=== PATIENT | female | born 1960 | race Caucasian/White ===

== ENCOUNTER 2017-10-16 08:07 | Inpatient (IN) | payer MEDICAID ==
[~2017-10-16] VITALS: Ht 182.9 cm; Wt 108.6 kg
[2017-10-16] VITALS (13 sets, daily range): BP systolic 95–146; BP diastolic 47–99
[2017-10-16] MEDS ORDERED: fentaNYL INJECTION 100 MCG/2 ML AMP IVP PRN (08:45)
[2017-10-16] MEDS ORDERED: ONDANSETRON 4 MG/2 ML (SDV) Z0FRAN IVP PRN (08:45)
[2017-10-16] MEDS ORDERED: ALPRAZolam 0.25 MG (XANAX) TAB PO PRN (08:45)
[2017-10-16] MEDS ORDERED: IBUPROFEN TABLET 200 MG TAB PO PRN (08:45)
[2017-10-16] MEDS ORDERED: guaiFENesin/CODEINE (ROBITUSSIN AC) 10ML UDC PO PRN (08:45)
[2017-10-16] MEDS ORDERED: HYDROcodone/APAP 5 MG/325 MG (LORTAB) TAB PO PRN (08:45)
[2017-10-16] MEDS: cefTRIAXone INJECTION 1,000 MG in NS (IVPB) 50 ML IV SCH (10:02)
[2017-10-16] MEDS: AZITHROMYCIN INJECTION 250 MG in NS (IVPB) 250 ML IV SCH (10:02)
[2017-10-16] MEDS ORDERED: METO-333 PO (10:41)
[2017-10-16] MEDS ORDERED: WARF-47 PO (10:41)
[2017-10-16] MEDS ORDERED: FLUT1AER IH (10:41)
[2017-10-16] MEDS ORDERED: ALPR0.5T PO (10:41)
[2017-10-16] MEDS ORDERED: WARF4TAB70 PO (10:41)
[2017-10-16] MEDS ORDERED: ALBU2.5V4 NEB (10:42)
[2017-10-16] MEDS: RT-BUDESONIDE NEBS 0.5 MG/2ML (PULMICORT) AMP INH SCH ×2 (10:42→18:04)
[2017-10-16] MEDS: RT-ALBUTEROL/IPRATROPIUM 3 ML (DUONEB) VIAL INH SCH ×4 (10:42→22:18)
[2017-10-16] MEDS ORDERED: CATHETER FLUSH 10 ML SYR IV PRN (11:00)
[2017-10-16] MEDS: POLYETHYLENE GLYCOL 17 GM (MIRALAX) PACK PO SCH ×2 (11:05→20:58)
[2017-10-16 11:11] LABS: BASOPHILS % (AUTO) 0 % (0-10); EOSINOPHILS # (AUTO) 0.1 10^3/uL (0.0-0.3); EOSINOPHILS % (AUTO) 1 % (0-10); HEMATOCRIT 42 % (35-52); HEMOGLOBIN 14.4 G/DL (11.5-16.0); LYMPHOCYTES # (AUTO) 1.1 X 10^3 (1.0-4.0); LYMPHOCYTES % (AUTO) 17 % (12-44); MEAN CORPUSCULAR HEMOGLOBIN 28 PG (25-34); MEAN CORPUSCULAR HGB CONC 34 G/DL (32-36); MEAN CORPUSCULAR VOLUME 81 FL (80-99); MEAN PLATELET VOLUME 10.8 FL (7.4-10.4); MONOCYTES # (AUTO) 0.9 X 10^3 (0.0-1.0); MONOCYTES % (AUTO) 14 % (0-12); NEUTROPHILS # (AUTO) 4.6 X 10^3 (1.8-7.8); NEUTROPHILS % (AUTO) 68 % (42-75); PLATELET COUNT 277 10^3/uL (130-400); RED BLOOD COUNT 5.19 10^6/uL (4.35-5.85); RED CELL DISTRIBUTION WIDTH 16.6 % (10.0-14.5); WHITE BLOOD COUNT 6.8 10^3/uL (4.3-11.0)
[2017-10-16] MEDS: CATHETER FLUSH 10 ML SYR IV SCH ×2 (11:18→20:58)
[2017-10-16] MEDS: methylPREDNISolone 125 MG (Solu-MEDROL) VIAL IVP SCH ×2 (11:18→17:52)
[2017-10-16 11:36] LABS: ALANINE AMINOTRANSFERASE 12 U/L (0-55); ALBUMIN 3.3 GM/DL (3.2-4.5); ALKALINE PHOSPHATASE 86 U/L (40-136); BILIRUBIN,TOTAL 0.8 MG/DL (0.1-1.0); BUN/CREATININE RATIO 17; CALCIUM 8.6 MG/DL (8.5-10.1); CARBON DIOXIDE 29 MMOL/L (21-32); CHLORIDE 101 MMOL/L (98-107); CREATININE SERUM 0.84 MG/DL (0.60-1.30); GFR ESTIMATED > 60; GLUCOSE 80 MG/DL (70-105); POTASSIUM 4.2 MMOL/L (3.6-5.0); SODIUM 141 MMOL/L (135-145); TOTAL PROTEIN 6.7 GM/DL (6.4-8.2)
--- NOTE | 2017-10-16 12:11 | History & Physical-Hospitalist ---
HPI History of Present Illness: HPI/Chief Complaint CC: Dyspnea HPI: This is a 56-year-old white female clinic patient of Dr. Busby who was sent to [facility] ER after she was seen at Dr. Lucero's office at [facility] clinic. She adjusted become established with cardiology after several years of no follow-up with a history of cardiac valve repair and bypass surgery who presents to the [facility] MedSurg after she was found to have mycoplasma pneumonia and heart failure in the ER. She was found to have elevated BNP consistent with volume overload and mycoplasma and with infiltrates on chest x-ray. She continues to smoke although she has been trying to quit. She is maintained on Coumadin for anticoagulation for valve replacement and overall she is had major decline in the last couple weeks. Due to the fact that she needed pulmonary and cardiology follow-up she was transferred to higher level of care on my service at [facility] in [place]. Source: patient Exam Limitations: no limitations Date Seen 10/16/17 Time Seen by Provider: 11:30 Attending Physician Megan Snyder DO PCP Referring Physician Date of Admission Oct 16, 2017 at 10:05 Home Medications & Allergies Home Medications Reviewed patient Home Medication Reconciliation Form Allergies Allergies Coded Allergies No Known Drug Allergies (Unverified10/16/17) Past Ethgaku-Ovntkb-Aqszmo Hx Patient Social History Marrital Status: single Employed/Student: unemployed Alcohol Use: Denies Use Recreational Drug Use: No Smoking Status: Current Everyday Smoker Type Used: Cigarettes Physical Abuse Screen: No Sexual Abuse: No Recent Foreign Travel: No Contact w/other who traveled: No Recent Hopitalizations: No Recent Infectious Disease Expo: No Immunizations Up To Date Date of Pneumonia Vaccine: Oct 27, 2012 Seasonal Allergies Seasonal Allergies: Yes Surgeries Yes Cardiac (valve), CABG, Gallbladder, Hysterectomy, Orthopedic (et ankle), Tonsillectomy Respiratory Yes COPD, Pneumonia, Sleep Apnea Currently Using CPAP: Yes Cardiovascular Yes Cardiomyopathy, Chronic Edema/Swelling, Coronary Artery Disease, High Cholesterol, Hypertension, Valvular Heart Disease Neurological No Genitourinary Yes Bladder Infection Gastrointestinal No Musculoskeletal Yes Degenerate Disk Disease, Chronic Back Pain Endocrine History of Endocrine Disorders: No HEENT History of HEENT Disorders: No Cancer No Psychosocial History of Psychiatric Problem: Yes Behavioral Health Disorders: Anxiety Integumentary History of Skin or Integumenta: No Blood Transfusions History of Blood Disorders: No Review of Systems Constitutional: see HPI, dizziness, fever, malaise EENTM: no symptoms reported Respiratory: cough, dyspnea on exertion, short of breath, wheezing Cardiovascular: chest pain, palpitations Gastrointestinal: no symptoms reported Genitourinary: no symptoms reported Musculoskeletal: no symptoms reported Skin: no symptoms reported Psychiatric/Neurological: No Symptoms Reported All Other Systems Reviewed Negative Unless Noted: Yes Physical Exam Physical Exam Vital Signs Vital Sign - Last 12Hours 10/16/17 10/16/17 10/16/17 10:15 10:24 10:30 Temp 98.9 Pulse 105 Resp 33 B/P (MAP) 104/89 (94) Pulse Ox 93 O2 Delivery Nasal Cannula O2 Flow Rate 6.00 Capillary Refill : General Appearance: No Apparent Distress, WD/WN, Chronically ill, Obese Eyes: Bilateral Eye Normal Inspection, Bilateral Eye PERRL HEENT: PERRL/EOMI, Normal ENT Inspection, Pharynx Normal Neck: Full Range of Motion, Normal Inspection, Non Tender, Supple, Carotid Bruit Respiratory: Chest Non Tender, Lungs Clear, Normal Breath Sounds, No Accessory Muscle Use, No Respiratory Distress Cardiovascular: Regular Rate, Rhythm, No Edema, No Gallop, No JVD, No Murmur, Normal Peripheral Pulses, Other (click) Gastrointestinal: Normal Bowel Sounds, No Organomegaly, No Pulsatile Mass, Non Tender, Soft Back: Normal Inspection, No CVA Tenderness, No Vertebral Tenderness Extremity: Normal Capillary Refill, Normal Inspection, Normal Range of Motion, Non Tender, No Calf Tenderness, No Pedal Edema Neurologic/Psychiatric: Alert, Oriented x3, No Motor/Sensory Deficits, Depressed Affect Skin: Normal Color, Warm/Dry Lymphatic: No Adenopathy Results Results/Procedures Lab Laboratory Tests 10/16/17 11:03 Assessment/Plan Admission Diagnosis Assessment: Acute on chronic respiratory failure Mycoplasma pneumonia Congestive heart failure with elevated BNP echo ordered History of heart valve replacement maintain on Coumadin History of UTIs COPD Current smoker Assessment and Plan Plan: Echocardiogram Cardiology consultation with Dr. Lucero Pulmonology consultation with Dr. Holder Monitor labs IV steroids IV Lasix Check chest x-ray Rocephin and Zithromax Clinical Quality Measures DVT/VTE Risk/Contraindication: Risk Factor Score Per Nursin RFS Level Per Nursing on Admit: 4+=Very High MEGAN SNYDER DO Oct 16, 2017 12:11
[2017-10-16] MEDS ORDERED: RT-ALBUTEROL SULF 2.5 MG/3 ML PRE-MIX VIAL INH PRN (12:15)
[2017-10-16 12:25] LABS: ABG BASE EXCESS 6.3 MMOL/L (-2.5-2.5); ABG OXYGEN SATURATION 92 % (94-100); ABG PCO2 52 MMHG (35-45); ABG PO2 58 MMHG (79-93); ABG TCO2 32.8 MMOL/L (21.0-31.0)
[2017-10-16 12:27] LABS: ALLENS TEST YES-POS
[2017-10-16 12:28] LABS: INSPIRED O2 5L; PATIENT TEMP 97.8
[2017-10-16] MEDS ORDERED: INFLUENZA TRIvalent 2017-2018 0.5 ML/45 MCG SYR IM ONE (12:45)
--- NOTE | 2017-10-16 13:30 | Diagnostic Imaging Report ---
INDICATION: Respiratory failure. Dyspnea. No previous for comparison. FINDINGS: Portable chest shows marked cardiomegaly. Mild pulmonary venous congestion. There are bibasilar alveolar infiltrates. There is obscuration of the diaphragm bilaterally. Median sternotomy changes are present. IMPRESSION: 1. Cardiomegaly with findings consistent with congestive failure. 2. Rather dense bibasilar alveolar infiltrates. Could not exclude superimposed pneumonia, especially in the left lung base. Dictated by: Dictated on workstation # [id number]
[2017-10-16] MEDS: warFARin 2 MG (COUMADIN) TAB PO SCH (17:53)
--- NOTE | 2017-10-16 18:09 | Consultation-Cardiology ---
HPI-Cardiology Cardiology Consultation Date of Consultation 10/16/17 Date of Admission Time Seen by Provider: 14:00 Indication: short of breath HPI 57 years old lady with history of heart valve surgery was seen in my office yesterday and send directly to the ER in [place], she came to establish care, has been having increasing shortness of breath over the last week that has been worsening shortness of breath, wheezing and fatigue with edema, denied any chest pain or palpitation, patient was transferred to [place] for higher level of care, she is reporting some improvement overnight, her cyanosis is better, no fever or chills, diagnosed with pneumonia Home Medications & Allergies Allergies: Coded Allergies: No Known Drug Allergies (Unverified , 10/16/17) Home Medication List Reviewed: Yes THW-Zzkhoy-Hddvdv Hx Patient Social History Marital Status: single Employed/Student: unemployed Alcohol Use: Denies Use Recreational Drug Use: No Smoking Status: Current Everyday Smoker Type Used: Cigarettes Recent Foreign Travel: No Recent Infectious Disease Expo: No Recent Hopitalizations: No Physical Abuse Screen: No Sexual Abuse: No Immunizations Up To Date Date of Pneumonia Vaccine: Oct 27, 2012 Past Medical History discussed below Family Medical History Family Medical Hx non contributory to her current condition Constitutional: see HPI, dizziness, malaise, weakness, weight gain EENTM: see HPI, no symptoms reported Respiratory: see HPI, cough, dyspnea on exertion, orthopnea, phlegm, short of breath, wheezing Cardiovascular: see HPI, edema, vascular heart diseas Gastrointestinal: no symptoms reported, see HPI Genitourinary: no symptoms reported, see HPI Musculoskeletal: see HPI Skin: no symptoms reported, see HPI Psychiatric/Neurological: No Symptoms Reported, See HPI Reviewed Test Results Reviewed Test Results Lab Laboratory Tests Test 10/16/17 11:03 10/16/17 12:20 Range/Units White Blood Count 6.8 4.3-11.0 10^3/uL Red Blood Count 5.19 4.35-5.85 10^6/uL Hemoglobin 14.4 11.5-16.0 G/DL Hematocrit 42 35-52 % Mean Corpuscular Volume 81 80-99 FL Mean Corpuscular Hemoglobin 28 25-34 PG Mean Corpuscular Hemoglobin Concent 34 32-36 G/DL Red Cell Distribution Width 16.6 H 10.0-14.5 % Platelet Count 277 130-400 10^3/uL Mean Platelet Volume 10.8 H 7.4-10.4 FL Neutrophils (%) (Auto) 68 42-75 % Lymphocytes (%) (Auto) 17 12-44 % Monocytes (%) (Auto) 14 H 0-12 % Eosinophils (%) (Auto) 1 0-10 % Basophils (%) (Auto) 0 0-10 % Neutrophils # (Auto) 4.6 1.8-7.8 X 10^3 Lymphocytes # (Auto) 1.1 1.0-4.0 X 10^3 Monocytes # (Auto) 0.9 0.0-1.0 X 10^3 Eosinophils # (Auto) 0.1 0.0-0.3 10^3/uL Basophils # (Auto) 0.0 0.0-0.1 10^3/uL Sodium Level 141 135-145 MMOL/L Potassium Level 4.2 3.6-5.0 MMOL/L Chloride Level 101 98-107 MMOL/L Carbon Dioxide Level 29 21-32 MMOL/L Anion Gap 11 5-14 MMOL/L Blood Urea Nitrogen 14 7-18 MG/DL Creatinine 0.84 0.60-1.30 MG/DL Estimat Glomerular Filtration Rate > 60 BUN/Creatinine Ratio 17 Glucose Level 80 70-105 MG/DL Calcium Level 8.6 8.5-10.1 MG/DL Total Bilirubin 0.8 0.1-1.0 MG/DL Aspartate Amino Transf (AST/SGOT) 19 5-34 U/L Alanine Aminotransferase (ALT/SGPT) 12 0-55 U/L Alkaline Phosphatase 86 40-136 U/L B-Type Natriuretic Peptide 728.9 H <100.0 PG/ML Total Protein 6.7 6.4-8.2 GM/DL Albumin 3.3 3.2-4.5 GM/DL Blood Gas Puncture Site LT RAD Blood Gas Patient Temperature 97.8 Arterial Blood pH 7.40 7.37-7.43 Arterial Blood Partial Pressure CO2 52 H 35-45 MMHG Arterial Blood Partial Pressure O2 58 L 79-93 MMHG Arterial Blood HCO3 31 H 23-27 MMOL/L Arterial Blood Total CO2 32.8 H 21.0-31.0 MMOL/L Arterial Blood Oxygen Saturation 92 L 94-100 % Arterial Blood Base Excess 6.3 H -2.5-2.5 MMOL/L Angel Test YES-POS Blood Gas Ventilator Setting NA Blood Gas Inspired Oxygen 5L Physical Exam Vital Signs Vital Sign - Last 12Hours 10/16/17 10/16/17 10/16/17 10:15 10:24 10:30 Temp 98.9 Pulse 105 Resp 33 B/P (MAP) 104/89 (94) Pulse Ox 93 O2 Delivery Nasal Cannula O2 Flow Rate 6.00 Capillary Refill : General Appearance: WD/WN, Moderate Distress, Severe Distress Eyes: Bilateral Eye Normal Inspection, Bilateral Eye PERRL, Bilateral Eye EOMI HEENT: PERRL/EOMI, TMs Normal, Normal ENT Inspection, Pharynx Normal Neck: Full Range of Motion, Normal Inspection, Non Tender, Supple Respiratory: Chest Non Tender, Crackles, Decreased Breath Sounds, Expiration, Inspiration, Respiratory Distress Cardiovascular: No Gallop, Normal Peripheral Pulses, Systolic Murmur, Tachycardia Gastrointestinal: Normal Bowel Sounds, No Organomegaly, No Pulsatile Mass, Non Tender, Soft Back: Normal Inspection, No CVA Tenderness, No Vertebral Tenderness Extremity: Normal Capillary Refill, Normal Inspection, Normal Range of Motion, Non Tender, No Calf Tenderness, Pedal Edema Neurologic/Psychiatric: Alert, Oriented x3, No Motor/Sensory Deficits, Normal Mood/Affect Skin: Normal Color, Warm/Dry Lymphatic: No Adenopathy A/P-Cardiology Admission Diagnosis Acute respiratory failure Pneumonia Congestive heart failure Valvular heart disease Assessment/Plan Acute respiratory failure, acute exacerbation of COPD, admitted to ICU, continue with oxygen, steroids and antibiotics Pneumonia, atypical, on Rocephin and Zythromax. continue to monitor Cyanosis and hypoxemia, secondary to above, continue with supportive care Congestive heart failure, Acute on chronic left ventricular systolic dysfunction , secondary to valvular heart disease, restart diuretics and monitor tolerance History of valve replacement, reporting that she had valve replaced and another round repair for the mitral and aortic, not sure which one is which. Planning to obtain an echocardiogram and copy of her records. Hypertension, currently hypotensive. Monitor blood pressure Hyperlipidemia, monitor lipids Noncompliance with medication, monitor INR closely. BMI 33, we discussed weight loss, increased risk for diabetes. Clinical Quality Measures DVT/VTE Risk/Contraindication: Risk Factor Score Per Nursin RFS Level Per Nursing on Admit: 4+=Very High ALONZO AMADOR MD Oct 16, 2017 18:09
[2017-10-16] MEDS: NICOTINE 7 MG (NICODERM) PATCH TD SCH (18:11)
[2017-10-16] MEDS: ALPRAZolam 0.5 MG (XANAX) TAB PO SCH (20:58)
[2017-10-16] MEDS: meTOprolol TARTRATE 25 MG (LOPRESSOR) TABLET PO SCH (20:58)
[2017-10-17] VITALS (10 sets, daily range): BP systolic 108–155; BP diastolic 67–86
[2017-10-17] MEDS: methylPREDNISolone 125 MG (Solu-MEDROL) VIAL IVP SCH ×4 (00:36→17:56)
[2017-10-17] MEDS: RT-ALBUTEROL/IPRATROPIUM 3 ML (DUONEB) VIAL INH SCH ×6 (02:32→22:12)
[2017-10-17 06:03] LABS: HEMOGLOBIN 14.7 G/DL (11.5-16.0); MEAN PLATELET VOLUME 11.4 FL (7.4-10.4); RED BLOOD COUNT 5.35 10^6/uL (4.35-5.85); RED CELL DISTRIBUTION WIDTH 16.6 % (10.0-14.5); WHITE BLOOD COUNT 4.9 10^3/uL (4.3-11.0)
[2017-10-17] MEDS: CATHETER FLUSH 10 ML SYR IV SCH ×3 (06:05→22:44)
[2017-10-17 06:15] LABS: INR 2.8 (0.8-1.4)
[2017-10-17 06:37] LABS: ALANINE AMINOTRANSFERASE 11 U/L (0-55); ALBUMIN 3.3 GM/DL (3.2-4.5); ALKALINE PHOSPHATASE 89 U/L (40-136); BILIRUBIN,TOTAL 0.7 MG/DL (0.1-1.0); BUN/CREATININE RATIO 18; CARBON DIOXIDE 29 MMOL/L (21-32); CHLORIDE 100 MMOL/L (98-107); CREATININE SERUM 0.76 MG/DL (0.60-1.30); GFR ESTIMATED > 60; GLUCOSE 131 MG/DL (70-105); POTASSIUM 4.5 MMOL/L (3.6-5.0); SODIUM 139 MMOL/L (135-145); TOTAL PROTEIN 6.8 GM/DL (6.4-8.2)
[2017-10-17] MEDS: RT-BUDESONIDE NEBS 0.5 MG/2ML (PULMICORT) AMP INH SCH ×2 (06:39→19:10)
--- NOTE | 2017-10-17 07:33 | Progress Note-Hospitalist ---
Subjective HPI/CC On Admission Date Seen by Provider: Oct 17, 2017 Time Seen by Provider: 07:26 CC: Dyspnea HPI: This is a 56-year-old white female clinic patient of Dr. Busby who was sent to [facility] ER after she was seen at Dr. Lucero's office at [facility] clinic. She adjusted become established with cardiology after several years of no follow-up with a history of cardiac valve repair and bypass surgery who presents to the [facility] MedSurg after she was found to have mycoplasma pneumonia and heart failure in the ER. She was found to have elevated BNP consistent with volume overload and mycoplasma and with infiltrates on chest x-ray. She continues to smoke although she has been trying to quit. She is maintained on Coumadin for anticoagulation for valve replacement and overall she is had major decline in the last couple weeks. Due to the fact that she needed pulmonary and cardiology follow-up she was transferred to higher level of care on my service at [facility] in [place]. Subjective/Events-last exam Pt report doing well but feels tired. Has spent many nights awake coughing so states she is "sleep deprived." She complains of persistent cough still. She does had 2lpm of oxygen ordered for her at home but does not wears it. She does wear her CPAP "sometimes" though. Objective Exam Vital Signs Vital Sign - Last 12Hours 10/16/17 10/16/17 10/16/17 10:15 10:24 10:30 Temp 98.9 Pulse 105 Resp 33 B/P (MAP) 104/89 (94) Pulse Ox 93 O2 Delivery Nasal Cannula O2 Flow Rate 6.00 Capillary Refill : General Appearance: No Apparent Distress, WD/WN Respiratory: No Accessory Muscle Use, Decreased Breath Sounds, Wheezing Cardiovascular: Systolic Murmur, Tachycardia Gastrointestinal: Normal Bowel Sounds, Non Tender, Soft Extremity: Non Tender, No Calf Tenderness, No Pedal Edema Neurologic/Psychiatric: Alert, Oriented x3 Results/Procedures Lab Laboratory Tests 10/17/17 05:25 Assessment/Plan Assessment and Plan Assess & Plan/Chief Complaint CAP Diagnosis/Problems Diagnosis/Problems (1) Mycoplasmal pneumonia Status: Acute Assessment & Plan: +mycoplasma per OSH Continue on Rocephin and Azithro MAT protocol Steroids Pulm consulted, appreciate recs Qualifiers: Qualified Codes: J15.7 - Pneumonia due to Mycoplasma pneumoniae (2) CHF (congestive heart failure), NYHA class III Status: Acute Assessment & Plan: Cardiology consulted, appreciate recs Continue Metoprolol Was not placed on Lasix- will start Echo ordered Qualifiers: Qualified Codes: I50.9 - Heart failure, unspecified (3) Tobacco abuse Status: Chronic Assessment & Plan: Attempting cessation Nicotine patch (4) COPD (chronic obstructive pulmonary disease) Assessment & Plan: Continue Steroids MAT Protocol Pulm consulted Titrate oxygen to keep sats> 89 Wears 2lpm at home- has DME there per patient Qualifiers: Qualified Codes: J44.9 - Chronic obstructive pulmonary disease, unspecified (5) Aortic valve replaced Assessment & Plan: as seen on echo INR 2.8 Cards consulted ENRRIQUE RAWLS MD Oct 17, 2017 07:33
[2017-10-17] MEDS ORDERED: FUROSEMIDE 40 MG/4 ML INJ (LASIX) IVP NR (07:45)
[2017-10-17] MEDS ORDERED: RT-ADVAIR HFA 115/21 MCG PER PUFF IH SCH (08:00)
--- NOTE | 2017-10-17 08:18 | Diagnostic Imaging Report ---
INDICATION: Cough, congestion. TECHNIQUE: Single view chest 8:04 AM. CORRELATION STUDY: 10/16/2017 FINDINGS: Increasing infiltrate of the lung bases as well as left mid upper lung field. Findings are superimposed on changes of COPD. Poststernotomy changes. Cardiac valve surgery. Cardiac enlargement with mild vascular congestion. IMPRESSION: 1. Increasing infiltrate particularly lung bases. Cardiac enlargement with vasculature slightly prominent. Dictated by: Dictated on workstation # [id number]
[2017-10-17] MEDS: ACETAMINOPHEN 500 MG TAB (TYLENOL) PO PRN ×2 (09:20→20:52)
[2017-10-17] MEDS: meTOprolol TARTRATE 25 MG (LOPRESSOR) TABLET PO SCH ×2 (09:20→20:52)
[2017-10-17] MEDS: ALPRAZolam 0.5 MG (XANAX) TAB PO SCH ×2 (09:20→20:52)
[2017-10-17] MEDS: NICOTINE 7 MG (NICODERM) PATCH TD SCH (09:21)
[2017-10-17] MEDS: cefTRIAXone INJECTION 1,000 MG in NS (IVPB) 50 ML IV SCH (09:21)
[2017-10-17] MEDS: NICOTINE PATCH REMOVAL TP SCH (09:21)
[2017-10-17] MEDS: POLYETHYLENE GLYCOL 17 GM (MIRALAX) PACK PO SCH ×2 (09:22→20:52)
--- NOTE | 2017-10-17 09:34 | Pulmonary Consultation ---
History of Present Illness History of Present Illness Date of Consultation 10/17/17 09:29 Date of Admission Reason for Visit: short of breath Allergies and Home Medications Allergies Coded Allergies: No Known Drug Allergies (Unverified , 10/16/17) Home Medications Albuterol Sulfate 2.5 Mg/3 Ml Vial.neb, 2.5 MG NEB QID PRN for SHORTNESS OF BREATH, (Reported) Alprazolam 0.5 Mg Tablet, 0.5 MG PO BID, (Reported) Fluticasone/Vilanterol 1 Each Blst.w.dev, 1 PUFF IH DAILY, (Reported) Metoprolol Tartrate 25 Mg Tablet, 25 MG PO BID, (Reported) Warfarin Sodium 2 Mg Tablet, 2 MG PO Q48H, (Reported) Warfarin Sodium 4 Mg Tablet, 4 MG PO Q48H, (Reported) Past Pdwddot-Cxkewe-Hdhmqi Hx Patient Social History Alcohol Use: Denies Use Recreational Drug Use: No Smoking Status: Current Everyday Smoker Type Used: Cigarettes Recent Foreign Travel: No Contact w/Someone Who Travel: No Recent Infectious Disease Expo: No Recent Hopitalizations: No Immunizations Up To Date Date of Pneumonia Vaccine: Oct 27, 2012 Seasonal Allergies Seasonal Allergies: Yes Surgeries History of Surgeries: Yes Surgeries: Cardiac (valve), CABG, Gallbladder, Hysterectomy, Orthopedic (et ankle), Tonsillectomy Respiratory History of Respiratory Disorde: Yes Respiratory Disorders: Pneumonia, Sleep Apnea, COPD Currently Using CPAP: Yes Cardiovascular History of Cardiac Disorders: Yes Cardiac Disorders: Cardiomyopathy, Chronic Edema/Swelling, Coronary Artery Disease, High Cholesterol, Hypertension, Valvular Heart Disease Neurological History of Neurological Disord: No Genitourinary History of Genitourinary Disor: Yes Genitourinary Disorders: Bladder Infection Gastrointestinal History of Gastrointestinal Di: No Musculoskeletal History of Musculoskeletal Dis: Yes Musculoskeletal Disorders: Degenerate Disk Disease, Chronic Back Pain Endocrine History of Endocrine Disorders: No HEENT History of HEENT Disorders: No Cancer History of Cancer: No Psychosocial History of Psychiatric Problem: Yes Behavioral Health Disorders: Anxiety Integumentary History of Skin or Integumenta: No Blood Transfusions History of Blood Disorders: No Exam Exam Vital Signs Date Time Temp Pulse Resp B/P (MAP) Pulse Ox O2 Delivery O2 Flow Rate FiO2 10/17/17 08:00 97.0 109 21 131/85 (100) 91 Nasal Cannula 6.00 10/17/17 07:00 112 16/18 06:39 94 Nasal Cannula 7.00 10/17/17 04:00 97.4 104 22 125/83 (97) 88 Nasal Cannula 6.00 10/17/17 02:33 93 Nasal Cannula 7.00 10/17/17 01:00 111 10/17/17 00:47 96.8 10/17/17 00:00 107 37 155/67 (96) 89 Nasal Cannula 10/16/17 22:19 94 Nasal Cannula 7.00 10/16/17 21:00 90 NIV CPAP 6.00 10/16/17 20:00 98.0 10/16/17 20:00 116 23 117/72 (87) 91 Nasal Cannula 10/16/17 19:00 118 10/16/17 18:12 93 Nasal Cannula 7.00 10/16/17 18:00 112 18 112/87 (95) 98 Nasal Cannula 6.00 10/16/17 17:00 123 36 95/47 (63) 91 Nasal Cannula 6.00 10/16/17 16:00 113 23 126/88 (101) 95 Nasal Cannula 5.00 10/16/17 15:00 112 27 140/83 (102) 93 Nasal Cannula 5.00 10/16/17 14:40 Nasal Cannula 5.00 10/16/17 14:00 105 22 146/95 (112) 92 Nasal Cannula 5.00 10/16/17 13:01 103 10/16/17 13:00 109 12 146/97 (113) 93 Nasal Cannula 5.00 10/16/17 12:00 102 12 139/92 (108) 97 Nasal Cannula 5.00 10/16/17 12:00 97 Nasal Cannula 5.00 10/16/17 11:41 Nasal Cannula 6.00 10/16/17 11:30 105 17 140/78 (98) 94 Nasal Cannula 6.00 10/16/17 11:15 97 30 131/99 (110) 96 Nasal Cannula 6.00 10/16/17 11:00 105 11 124/76 (92) 92 Nasal Cannula 6.00 10/16/17 10:45 75 18 121/80 (94) 96 Nasal Cannula 6.00 10/16/17 10:45 Nasal Cannula 5.00 10/16/17 10:30 103 33 104/89 (94) 93 Nasal Cannula 6.00 10/16/17 10:24 105 10/16/17 10:15 98.9 I & O 10/17/17 07:00 Intake Total 625 ml Output Total 300 ml Balance 325 ml General Appearance: No Apparent Distress, WD/WN HEENT: PERRL/EOMI, TMs Normal, Normal ENT Inspection, Pharynx Normal Neck: Full Range of Motion, Normal Inspection, Non Tender, Supple Respiratory: No Accessory Muscle Use, Decreased Breath Sounds, Wheezing Cardiovascular: Systolic Murmur, Tachycardia Capillary Refill: Less Than 3 Seconds Extremity: Non Tender, No Calf Tenderness, No Pedal Edema Neurologic/Psychiatric: Alert, Oriented x3 Skin: Normal Color, Warm/Dry Lymphatic: No Adenopathy Results Lab Laboratory Tests 10/16/17 11:03 10/17/17 05:25 Assessment/Plan Assessment/Plan Mycoplasma PNA -Continue Rocephin and Azithromy;jong -SVNS CHF AE Lasix -Cardiology following Tobacco dependance -Education COPD AE -SOlumedrol Hx of aortic valve replacement. 255 Clinical Quality Measures DVT/VTE Risk/Contraindication: Risk Factor Score Per Nursin RFS Level Per Nursing on Admit: 4+=Very High THIEN KIRKPATRICK DO Oct 17, 2017 09:34
--- NOTE | 2017-10-17 09:56 | Cardiology Progress Note ---
Subjective Date Seen by Provider: Oct 17, 2017 Time Seen by Provider: 09:53 Subjective/Events-last exam patient is sitting up in a chair, feeling better, breathing better. Denied any chest pain. Still coughing and short of breath. Chest x-ray slightly worse Review of Systems General: No Chills, No Night Sweats, No Fatigue, No Malaise, No Appetite, No Other HEENT: No Head Aches, No Visual Changes, No Eye Pain, No Ear Pain, No Dysphasia , No Sinus Congestion, No Post Nasal Drip, No Sore Throat, No Other Pulmonary: Dyspnea, Cough, No Pleuritic Chest Pain, No Other Cardiovascular: Edema, No: Chest Pain, Palpitations, Orthopnea, Paroxysmal Noc. Dyspnea, Lt Headedness, Other Objective-Cardiology Exam Last Set of Vital Signs Vital Signs 10/17/17 08:00 Temp 97.0 Pulse 109 Resp 21 B/P (MAP) 131/85 (100) Pulse Ox 91 O2 Delivery Nasal Cannula O2 Flow Rate 6.00 Capillary Refill : Less Than 3 Seconds I&O Intake and Output 10/17/17 00:00 Intake Total 575 ml Output Total 100 ml Balance 475 ml Intake Oral 575 ml Output Urine Total 100 ml # Voids 3 # Bowel Movements 1 Daily Weight Change No General: Alert, Oriented X3, Cooperative HEENT: Atraumatic, PERRLA Neck: Supple, No JVD, No Thyromegaly Lungs: Normal Air Movement, Other (bilateral rhonchi) Heart: Normal S1, Normal S2, No Murmurs, Other (tachycardic) Abdomen: Normal Bowel Sounds, Soft, No Tenderness, No Hepatosplenomegaly, No Masses Extremities: No Clubbing, No Cyanosis, Normal Pulses, No Tenderness/Swelling, Other (mild edema) Skin: No Rashes, No Breakdown, No Significant Lesion Neuro: Normal Gait, Normal Speech, Strength at 5/5 X4 Ext, Normal Tone, Sensation Intact Psych/Mental Status: Mental Status NL, Mood NL Results Lab Laboratory Tests 10/16/17 11:03 10/17/17 05:25 A/P-Cardiology Admission Diagnosis Acute respiratory failure Pneumonia Congestive heart failure Valvular heart disease Assessment/Plan Acute respiratory failure, acute exacerbation of COPD, still having shortness of breath on oxygen. Continue with aggressive treatment. Continue to monitor Pneumonia, atypical, on Rocephin and Zithromax, chest x-ray is slightly worse today. Continue on antibiotic and monitor. Sinus tachycardia, due to shortness of breath and hypomagnesemia. Continue to monitor Cyanosis and hypoxemia, secondary to above, continue with supportive care, slightly better. Congestive heart failure, Acute on chronic left ventricular systolic dysfunction , secondary to valvular heart disease, History of aortic valve replacement, ejection fraction 40 percent. Continue to monitor at this time. History of aortic valve replacement, echocardiogram showed prosthetic valve is functioning normally, INR is 2.8. Continue to monitor daily INR. Mitral valve repair. Calcified valve. Hypertension, blood pressure is better at this time. Continue to monitor Hyperlipidemia, monitor lipids Noncompliance with medication, monitor INR closely. BMI 33, we discussed weight loss, increased risk for diabetes. Clinical Quality Measures DVT/VTE Risk/Contraindication: Risk Factor Score Per Nursin RFS Level Per Nursing on Admit: 4+=Very High ALONZO AMADOR MD Oct 17, 2017 09:56
[2017-10-17] MEDS: guaiFENesin (MUCINEX) 600 MG TAB PO PRN (10:09)
[2017-10-17] MEDS: ADVAIR HFA 115/21 MCG INHALER 8 GM IH SCH (10:13)
[2017-10-17] MEDS: AZITHROMYCIN INJECTION 250 MG in NS (IVPB) 250 ML IV SCH (10:21)
[2017-10-17] MEDS: LOSARTAN 25 MG (COZAAR) TAB PO SCH (13:05)
[2017-10-17] MEDS: warFARin 2 MG (COUMADIN) TAB PO SCH (18:06)
[2017-10-18] VITALS (9 sets, daily range): BP systolic 107–151; BP diastolic 63–98
[2017-10-18] MEDS: methylPREDNISolone 125 MG (Solu-MEDROL) VIAL IVP SCH ×4 (00:06→17:54)
[2017-10-18] MEDS: RT-ALBUTEROL/IPRATROPIUM 3 ML (DUONEB) VIAL INH SCH ×6 (02:41→21:26)
[2017-10-18] MEDS: ACETAMINOPHEN 500 MG TAB (TYLENOL) PO PRN ×3 (03:47→21:14)
[2017-10-18] MEDS: CATHETER FLUSH 10 ML SYR IV SCH ×3 (06:05→21:19)
[2017-10-18 06:10] LABS: BUN/CREATININE RATIO 27; CARBON DIOXIDE 27 MMOL/L (21-32); CHLORIDE 98 MMOL/L (98-107); CREATININE SERUM 0.81 MG/DL (0.60-1.30); GFR ESTIMATED > 60; GLUCOSE 121 MG/DL (70-105); POTASSIUM 4.9 MMOL/L (3.6-5.0); SODIUM 137 MMOL/L (135-145)
[2017-10-18 06:17] LABS: INR 3.6 (0.8-1.4); PROTHROMBIN TIME PATIENT 35.6 SEC (12.2-14.7)
[2017-10-18] MEDS: ADVAIR HFA 115/21 MCG INHALER 8 GM IH SCH (07:05)
[2017-10-18] MEDS: RT-BUDESONIDE NEBS 0.5 MG/2ML (PULMICORT) AMP INH SCH ×2 (07:05→21:26)
[2017-10-18] MEDS: POLYETHYLENE GLYCOL 17 GM (MIRALAX) PACK PO SCH ×2 (07:20→21:13)
--- NOTE | 2017-10-18 08:13 | Cardiology Progress Note ---
Subjective Date Seen by Provider: Oct 18, 2017 Time Seen by Provider: 08:09 Subjective/Events-last exam patient is sitting in a chair, feeling comfortable, breathing better but still having shortness of breath and cough. Denied any palpitation. Tachycardic. Review of Systems General: No Chills, No Night Sweats, No Fatigue, No Malaise, No Appetite, No Other HEENT: No Head Aches, No Visual Changes, No Eye Pain, No Ear Pain, No Dysphasia , No Sinus Congestion, No Post Nasal Drip, No Sore Throat, No Other Pulmonary: Dyspnea, Cough, No Pleuritic Chest Pain, No Other Cardiovascular: No: Chest Pain, Palpitations, Orthopnea, Paroxysmal Noc. Dyspnea, Edema, Lt Headedness, Other Objective-Cardiology Exam Last Set of Vital Signs Vital Signs 10/18/17 10/18/17 10/18/17 03:00 04:00 07:09 Temp 98.2 Pulse 110 Resp 22 B/P (MAP) 133/89 (104) Pulse Ox 96 O2 Delivery Nasal Cannula O2 Flow Rate 5.00 Capillary Refill : Less Than 3 Seconds I&O Intake and Output 10/18/17 00:00 Intake Total 1620 ml Output Total 1202 ml Balance 418 ml Intake Oral 1620 ml Output Urine Total 1202 ml # Voids 2 General: Alert, Oriented X3, Cooperative HEENT: Atraumatic, PERRLA Neck: Supple, No JVD, No Thyromegaly Lungs: Normal Air Movement, Other (bilateral rhonchi) Heart: Normal S1, Normal S2, No Murmurs, Other (tachycardic) Abdomen: Normal Bowel Sounds, Soft, No Tenderness, No Hepatosplenomegaly, No Masses Extremities: No Clubbing, No Cyanosis, Normal Pulses, No Tenderness/Swelling, Other (mild edema) Skin: No Rashes, No Breakdown, No Significant Lesion Neuro: Normal Gait, Normal Speech, Strength at 5/5 X4 Ext, Normal Tone, Sensation Intact Psych/Mental Status: Mental Status NL, Mood NL Results Lab Laboratory Tests 10/18/17 05:30 A/P-Cardiology Admission Diagnosis Acute respiratory failure Pneumonia Congestive heart failure Valvular heart disease Assessment/Plan Status post acute respiratory failure, acute exacerbation of COPD, improving slowly, still tachycardic due to hypoxemia. Sinus tachycardia secondary to hypoxemia. Continue to monitor at this time. No changes are recommended. Pneumonia, atypical, on Rocephin and Zithromax, feeling better today, planning to repeat chest x-ray tomorrow. Cyanosis and hypoxemia, secondary to above, continue with supportive care, slightly better. Congestive heart failure, Acute on chronic left ventricular systolic dysfunction , secondary to valvular heart disease, History of aortic valve replacement, ejection fraction 40 percent. Continue to monitor at this time. History of aortic valve replacement, echocardiogram showed prosthetic valve is functioning normally, INR is 3.6, hold Coumadin today and monitor INR. Hypertension, blood pressure is better at this time. Continue to monitor Hyperlipidemia, monitor lipids Noncompliance with medication, monitor INR closely. BMI 33, we discussed weight loss, increased risk for diabetes. Clinical Quality Measures DVT/VTE Risk/Contraindication: Risk Factor Score Per Nursin RFS Level Per Nursing on Admit: 4+=Very High ALONZO AMADOR MD Oct 18, 2017 08:12
[2017-10-18] MEDS: NICOTINE PATCH REMOVAL TP SCH (08:22)
[2017-10-18] MEDS: NICOTINE 7 MG (NICODERM) PATCH TD SCH (08:22)
[2017-10-18] MEDS: LOSARTAN 25 MG (COZAAR) TAB PO SCH (08:23)
[2017-10-18] MEDS: cefTRIAXone INJECTION 1,000 MG in NS (IVPB) 50 ML IV SCH (08:23)
[2017-10-18] MEDS: ALPRAZolam 0.5 MG (XANAX) TAB PO SCH ×2 (08:23→21:14)
[2017-10-18] MEDS: meTOprolol TARTRATE 25 MG (LOPRESSOR) TABLET PO SCH ×2 (08:53→21:14)
[2017-10-18] MEDS: AZITHROMYCIN INJECTION 250 MG in NS (IVPB) 250 ML IV SCH (08:53)
--- NOTE | 2017-10-18 08:59 | Progress Note-Hospitalist ---
Subjective HPI/CC On Admission Date Seen by Provider: Oct 18, 2017 Time Seen by Provider: 08:58 CC: Dyspnea HPI: This is a 56-year-old white female clinic patient of Dr. Busby who was sent to [facility] ER after she was seen at Dr. Lucero's office at [facility] clinic. She adjusted become established with cardiology after several years of no follow-up with a history of cardiac valve repair and bypass surgery who presents to the [facility] MedSurg after she was found to have mycoplasma pneumonia and heart failure in the ER. She was found to have elevated BNP consistent with volume overload and mycoplasma and with infiltrates on chest x-ray. She continues to smoke although she has been trying to quit. She is maintained on Coumadin for anticoagulation for valve replacement and overall she is had major decline in the last couple weeks. Due to the fact that she needed pulmonary and cardiology follow-up she was transferred to higher level of care on my service at [facility] in [place]. Subjective/Events-last exam She reports feeling well. She got sleep and is not coughing as much. No complaints. Eating well. No problems urinating or with BM. Objective Exam Vital Signs Vital Sign - Last 12Hours 10/16/17 10/16/17 10/16/17 10:15 10:24 10:30 Temp 98.9 Pulse 105 Resp 33 B/P (MAP) 104/89 (94) Pulse Ox 93 O2 Delivery Nasal Cannula O2 Flow Rate 6.00 Capillary Refill : Less Than 3 Seconds General Appearance: No Apparent Distress, WD/WN Respiratory: Lungs Clear, No Respiratory Distress Cardiovascular: Regular Rate, Rhythm, No Murmur Gastrointestinal: Normal Bowel Sounds, Non Tender, Soft Extremity: Non Tender, No Calf Tenderness Neurologic/Psychiatric: Alert, Oriented x3 Results/Procedures Lab Laboratory Tests 10/18/17 05:30 Assessment/Plan Assessment and Plan Assess & Plan/Chief Complaint CAP Diagnosis/Problems Diagnosis/Problems (1) Mycoplasmal pneumonia Status: Acute Assessment & Plan: +mycoplasma per OSH Continue on Rocephin and Azithro MAT protocol Steroids Pulm consulted, appreciate recs Qualifiers: Qualified Codes: J15.7 - Pneumonia due to Mycoplasma pneumoniae (2) CHF (congestive heart failure), NYHA class III Status: Acute Assessment & Plan: Cardiology consulted, appreciate recs Continue Metoprolol Echo ordered Qualifiers: Qualified Codes: I50.9 - Heart failure, unspecified (3) Tobacco abuse Status: Chronic Assessment & Plan: Attempting cessation Nicotine patch (4) COPD (chronic obstructive pulmonary disease) Assessment & Plan: Continue Steroids MAT Protocol Pulm consulted Titrate oxygen to keep sats> 89 Wears 2lpm at home- has DME there per patient I titrated patient down to 4lpm myself while in room Qualifiers: Qualified Codes: J44.9 - Chronic obstructive pulmonary disease, unspecified (5) Aortic valve replaced Assessment & Plan: as seen on echo INR 3.6, coumadin held currently Cards consulted ENRRIQUE RAWLS MD Oct 18, 2017 08:59
[2017-10-19] VITALS: BP 143/78
[2017-10-19] MEDS: methylPREDNISolone 125 MG (Solu-MEDROL) VIAL IVP SCH ×2 (00:16→05:41)
[2017-10-19] MEDS: RT-ALBUTEROL/IPRATROPIUM 3 ML (DUONEB) VIAL INH SCH ×6 (02:56→21:40)
[2017-10-19 04:00] VITALS: BP 141/89
[2017-10-19] MEDS: CATHETER FLUSH 10 ML SYR IV SCH ×3 (05:41→22:58)
[2017-10-19 06:44] LABS: HEMOGLOBIN 15.4 G/DL (11.5-16.0); RED BLOOD COUNT 5.61 10^6/uL (4.35-5.85); WHITE BLOOD COUNT 8.6 10^3/uL (4.3-11.0)
[2017-10-19 06:45] LABS: MEAN PLATELET VOLUME 10.2 FL (7.4-10.4); RED CELL DISTRIBUTION WIDTH 17.3 % (10.0-14.5)
[2017-10-19] MEDS: RT-BUDESONIDE NEBS 0.5 MG/2ML (PULMICORT) AMP INH SCH (06:47)
[2017-10-19] MEDS: ADVAIR HFA 115/21 MCG INHALER 8 GM IH SCH (06:47)
[2017-10-19 06:52] LABS: INR 2.6 (0.8-1.4); PROTHROMBIN TIME PATIENT 27.3 SEC (12.2-14.7)
[2017-10-19 07:15] LABS: ALANINE AMINOTRANSFERASE 25 U/L (0-55); ALBUMIN 3.4 GM/DL (3.2-4.5); ALKALINE PHOSPHATASE 78 U/L (40-136); BILIRUBIN,TOTAL 0.8 MG/DL (0.1-1.0); BUN/CREATININE RATIO 30; CALCIUM 9.2 MG/DL (8.5-10.1); CARBON DIOXIDE 21 MMOL/L (21-32); CHLORIDE 99 MMOL/L (98-107); CREATININE SERUM 0.82 MG/DL (0.60-1.30); GFR ESTIMATED > 60; GLUCOSE 107 MG/DL (70-105); POTASSIUM 5.7 MMOL/L (3.6-5.0); SODIUM 135 MMOL/L (135-145); TOTAL PROTEIN 7.3 GM/DL (6.4-8.2)
--- NOTE | 2017-10-19 07:53 | Cardiology Progress Note ---
Subjective Date Seen by Provider: Oct 19, 2017 Time Seen by Provider: 07:50 Subjective/Events-last exam patient is sitting in bed, feeling better, breathing better, still having some cough. Review of Systems General: No Chills, No Night Sweats, No Fatigue, No Malaise, No Appetite, No Other HEENT: No Head Aches, No Visual Changes, No Eye Pain, No Ear Pain, No Dysphasia , No Sinus Congestion, No Post Nasal Drip, No Sore Throat, No Other Pulmonary: Dyspnea, Cough, No Pleuritic Chest Pain, No Other Cardiovascular: No: Chest Pain, Palpitations, Orthopnea, Paroxysmal Noc. Dyspnea, Edema, Lt Headedness, Other Objective-Cardiology Exam Last Set of Vital Signs Vital Signs 10/19/17 10/19/17 10/19/17 04:00 06:45 06:50 Temp 96.0 Pulse 97 Resp 20 B/P (MAP) 141/89 (106) Pulse Ox 98 O2 Delivery Nasal Cannula O2 Flow Rate 4.00 Capillary Refill : Less Than 3 Seconds I&O Intake and Output 10/19/17 00:00 Intake Total 1620 ml Balance 1620 ml Intake Oral 1620 ml # Voids 4 # Bowel Movements 1 General: Alert, Oriented X3, Cooperative HEENT: Atraumatic, PERRLA Neck: Supple, No JVD, No Thyromegaly Lungs: Clear to Auscultation, Normal Air Movement Heart: Regular Rate, Normal S1, Normal S2, No Murmurs Abdomen: Normal Bowel Sounds, Soft, No Tenderness, No Hepatosplenomegaly, No Masses Extremities: No Clubbing, No Cyanosis, Normal Pulses, No Tenderness/Swelling Skin: No Rashes, No Breakdown, No Significant Lesion Neuro: Normal Gait, Normal Speech, Strength at 5/5 X4 Ext, Normal Tone, Sensation Intact Psych/Mental Status: Mental Status NL, Mood NL Results Lab Laboratory Tests 10/19/17 05:35 A/P-Cardiology Admission Diagnosis Acute respiratory failure Pneumonia Congestive heart failure Valvular heart disease Assessment/Plan Status post acute respiratory failure, acute exacerbation of COPD, better today. Continue on current medications and monitor. Sinus tachycardia secondary to hypoxemia, better today. Continue to monitor. Pneumonia, atypical, on Rocephin and Zithromax, feeling better today, continue on current treatment and monitor. Cyanosis and hypoxemia, secondary to above, continue with supportive care, slightly better. Congestive heart failure, Acute on chronic left ventricular systolic dysfunction , secondary to valvular heart disease, History of aortic valve replacement, ejection fraction 40 percent. Continue to monitor at this time. History of aortic valve replacement, echocardiogram showed prosthetic valve is functioning normally, INR is 2.6, restart Coumadin and monitor INR Hypertension, blood pressure is better at this time. Continue to monitor Hyperlipidemia, monitor lipids Noncompliance with medication, monitor INR closely. BMI 33, we discussed weight loss, increased risk for diabetes. Clinical Quality Measures DVT/VTE Risk/Contraindication: Risk Factor Score Per Nursin RFS Level Per Nursing on Admit: 4+=Very High ALONZO AMADOR MD Oct 19, 2017 07:53
[2017-10-19 08:00] VITALS: BP 132/79
[2017-10-19] MEDS: ACETAMINOPHEN 500 MG TAB (TYLENOL) PO PRN (08:30)
[2017-10-19] MEDS: ALPRAZolam 0.5 MG (XANAX) TAB PO SCH ×2 (08:30→21:36)
[2017-10-19] MEDS: meTOprolol TARTRATE 25 MG (LOPRESSOR) TABLET PO SCH ×2 (08:30→21:36)
[2017-10-19] MEDS: cefTRIAXone INJECTION 1,000 MG in NS (IVPB) 50 ML IV SCH (08:31)
[2017-10-19] MEDS: NICOTINE PATCH REMOVAL TP SCH (08:31)
[2017-10-19] MEDS: NICOTINE 7 MG (NICODERM) PATCH TD SCH (08:31)
[2017-10-19] MEDS: LOSARTAN 25 MG (COZAAR) TAB PO SCH (08:31)
[2017-10-19] MEDS: guaiFENesin (MUCINEX) 600 MG TAB PO PRN (08:40)
[2017-10-19] MEDS: POLYETHYLENE GLYCOL 17 GM (MIRALAX) PACK PO SCH ×2 (08:43→21:36)
[2017-10-19] MEDS: AZITHROMYCIN INJECTION 250 MG in NS (IVPB) 250 ML IV SCH (09:19)
--- NOTE | 2017-10-19 11:34 | Pulmonary Progress Note ---
Subjective Time Seen by Provider: 11:40 Subjective/Events-last exam Pt appears to be doing better. Exam Exam Vital Signs Date Time Temp Pulse Resp B/P (MAP) Pulse Ox O2 Delivery O2 Flow Rate FiO2 10/19/17 10:30 92 Nasal Cannula 4.00 10/19/17 09:00 Nasal Cannula 4.00 10/19/17 08:00 98.4 89 20 132/79 (96) 93 Nasal Cannula 4.00 10/19/17 06:50 98 10/19/17 06:45 94 Nasal Cannula 4.00 10/19/17 04:00 96.0 97 20 141/89 (106) 98 Nasal Cannula 4.00 10/19/17 03:00 93 NIV CPAP 4.00 10/19/17 00:00 97.0 101 20 143/78 (99) 89 Nasal Cannula 4.00 10/18/17 21:32 99 Nasal Cannula 4.00 10/18/17 21:26 94 Nasal Cannula 4.00 10/18/17 21:00 93 Nasal Cannula 5.00 10/18/17 20:09 97.0 106 22 131/98 (109) 93 Nasal Cannula 4.00 10/18/17 17:14 98.6 94 20 146/91 (109) 94 Nasal Cannula 4.00 10/18/17 15:16 94 Nasal Cannula 5.00 10/18/17 12:00 97.0 103 20 123/81 (95) 93 Nasal Cannula 4.00 10/18/17 11:34 93 Nasal Cannula 5.00 I & O 10/19/17 07:00 Intake Total 1520 ml Output Total 950 ml Balance 570 ml General Appearance: No Apparent Distress, WD/WN HEENT: PERRL/EOMI, TMs Normal, Normal ENT Inspection, Pharynx Normal Neck: Full Range of Motion, Normal Inspection, Non Tender, Supple Respiratory: Lungs Clear, No Respiratory Distress Cardiovascular: Regular Rate, Rhythm, No Murmur Capillary Refill: Less Than 3 Seconds Extremity: Non Tender, No Calf Tenderness Neurologic/Psychiatric: Alert, Oriented x3 Skin: Normal Color, Warm/Dry Lymphatic: No Adenopathy Results Lab Laboratory Tests 10/18/17 05:30 10/19/17 05:35 Assessment/Plan Assessment/Plan Mycoplasma PNA -Continue Rocephin and Azithromycin -SVNS CHF AE with pulmonary edema Lasix give 60mg x 1 -Cardiology following Tobacco dependance -Education COPD AE -SOlumedrol -- change to prednisone taper -oxygen -SVNs Hx of aortic valve replacement. Clinical Quality Measures DVT/VTE Risk/Contraindication: Risk Factor Score Per Nursin RFS Level Per Nursing on Admit: 4+=Very High THIEN KIRKPATRICK DO Oct 19, 2017 11:34
[2017-10-19] MEDS ORDERED: FUROSEMIDE 40 MG/4 ML INJ (LASIX) IVP NR (11:45)
[2017-10-19 12:00] VITALS: BP 120/68
--- NOTE | 2017-10-19 14:13 | Progress Note-Hospitalist ---
Subjective HPI/CC On Admission Date Seen by Provider: Oct 19, 2017 Time Seen by Provider: 13:30 CC: Dyspnea HPI: This is a 56-year-old white female clinic patient of Dr. Busby who was sent to [facility] ER after she was seen at Dr. Lucero's office at [facility] clinic. She adjusted become established with cardiology after several years of no follow-up with a history of cardiac valve repair and bypass surgery who presents to the [facility] MedSurg after she was found to have mycoplasma pneumonia and heart failure in the ER. She was found to have elevated BNP consistent with volume overload and mycoplasma and with infiltrates on chest x-ray. She continues to smoke although she has been trying to quit. She is maintained on Coumadin for anticoagulation for valve replacement and overall she is had major decline in the last couple weeks. Due to the fact that she needed pulmonary and cardiology follow-up she was transferred to higher level of care on my service at [facility] in [place]. Subjective/Events-last exam Pt reports feeling great today. Has been up and ambulating without problems. Does not think Mucinex is helping, feels it's getting her more congested. Objective Exam Vital Signs Vital Sign - Last 12Hours 10/16/17 10/16/17 10/16/17 10:15 10:24 10:30 Temp 98.9 Pulse 105 Resp 33 B/P (MAP) 104/89 (94) Pulse Ox 93 O2 Delivery Nasal Cannula O2 Flow Rate 6.00 Capillary Refill : Less Than 3 Seconds General Appearance: No Apparent Distress, WD/WN Respiratory: Lungs Clear, No Respiratory Distress Cardiovascular: Regular Rate, Rhythm, No JVD Gastrointestinal: Normal Bowel Sounds, Non Tender, Soft Extremity: Non Tender, No Calf Tenderness Neurologic/Psychiatric: Alert, Oriented x3, Normal Mood/Affect Results/Procedures Lab Laboratory Tests 10/19/17 05:35 Assessment/Plan Assessment and Plan Assess & Plan/Chief Complaint CAP Diagnosis/Problems Diagnosis/Problems (1) Mycoplasmal pneumonia Status: Acute Assessment & Plan: +mycoplasma per OSH Continue on Rocephin and Azithro MAT protocol Steroids Pulm consulted, appreciate recs Qualifiers: Qualified Codes: J15.7 - Pneumonia due to Mycoplasma pneumoniae (2) CHF (congestive heart failure), NYHA class III Status: Acute Assessment & Plan: Cardiology consulted, appreciate recs Continue Metoprolol Echo shows EF 40-45% Lasix given this AM Qualifiers: Qualified Codes: I50.9 - Heart failure, unspecified (3) COPD (chronic obstructive pulmonary disease) Assessment & Plan: Continue Steroids MAT Protocol Pulm consulted Titrate oxygen to keep sats> 89 Wears 2lpm at home- has DME there per patient Qualifiers: Qualified Codes: J44.9 - Chronic obstructive pulmonary disease, unspecified (4) Tobacco abuse Status: Chronic Assessment & Plan: Attempting cessation Nicotine patch (5) Aortic valve replaced Assessment & Plan: as seen on echo INR 2.6, coumadin resumed Cards consulted ENRRIQUE RAWLS MD Oct 19, 2017 14:13
--- NOTE | 2017-10-19 15:39 | Occ Therapy Progress Note ---
Therapy Progress Note 1525 to 1530 Pt reported that she has been taking herself to the bathroom, able to get socks off and on, doing grooming in bathroom, able to feed herself. Her arm strength is WFL for her needs, per her report ("I've never been really strong.".) She manages her energy conservation needs and is comfortable doing ADLs with oxygen tubing. No skilled needs identified, with patient agreement. PASQUALE OT. visit ERIBERTO CHOW OT Oct 19, 2017 15:39
--- NOTE | 2017-10-19 15:53 | Physical Therapy Evaluation ---
PT Evaluation-General Medical Diagnosis Admission Date Oct 16, 2017 at 10:05 Medical Diagnosis: mycoplasm pneumonia Onset Date: Oct 16, 2017 Therapy Diagnosis Therapy Diagnosis: weakness; abn gait Height/Weight Height (Feet): 6 Height (Inches): 0.00 Weight (Pounds): 259 Weight (Ounces): 1.0 Precautions Precautions/Isolations: Droplet Isolation Weight Bear Status Right Lower Extremity: Right Weight Bearing/Tolerated Left Lower Extremity: Left Weight Bearing/Tolerated Referral Physician: Elizabeth Reason for Referral: Evaluation/Treatment Medical History Pertinent Medical History: CABG (valve replacement), COPD, HTN Additional Medical History DDD; current everyday smoker Current History Pt admitted with SOA, respiratory failure and found to have above diagnosis Reviewed History: Yes Social History Home: Single Level Current Living Status: Alone Entry Into Home: Stairs With Railing Prior/Core FIM Prior Level of Function Functional [place] Measure 0=Not Assessed/NA 4=Minimal Assistance 1=Total Assistance 5=Supervision or Setup 2=Maximal Assistance 6=Modified [place] 3=Moderate Assistance 7=Complete [place] Indep at PLOF; 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 PT Evaluation-Current Subjective Agreeable to PT. Wants to walk in the jeter to "stretch my legs and back." Pain Numeric Pain Scale: 0-No Pain Location: No Pain Reported Objective Patient Orientation: Person, Place, Time, Situation Problem Solving: Good Attachments: Oxygen (in situ during and post treatment) ROM/Strength Strength Upper Extremities WFL Strength Lower Extremities WFL Integumentary/Posture Integumentary refer to nursing notes. Bowel Incontinence: No Posture normal and symmetrical Neuromuscular (Tone, Coordination, Reflexes) no noted functional deficits Sensory Vision: Functional Hearing: Functional Hand Dominance: Right Sensation Right Lower Extremit: Intact Sensation Left Lower Extremity: Intact Transfers Functional [place] Measure 0=Not Assessed/NA 4=Minimal Assistance 1=Total Assistance 5=Supervision or Setup 2=Maximal Assistance 6=Modified [place] 3=Moderate Assistance 7=Complete [place] Transfers (B, C, W/C) (FIM): 5 Gait Mode of Locomotion: Walk Anticipated Mode of Locomotion: Walk Gait (FIM): 5 Distance (FIM): 3=150 ft Distance: 220 ft Gait Level of Assist: 5 Gait Assistive Device: None Comments/Gait Description Safe and steady gait; 2-3 standing rest breaks. Balance Sitting Static: Good Sitting Dynamic: Good Standing Static: Good Standing Dynamic: Good Assessment/Needs Pt presents with acute hospital stay due to above diagnosis. She did well with gait and is safe. Will beneift from a reassessment tomorrow and plan to dc if she is still at a high mobility level Rehab Potential: Good PT Senior Living Goals Senior Living Goals PT Senior Living Goals Time Frame: Oct 21, 2017 Transfers (B,C,W/C) (FIM): 7 Gait (FIM): 7 PT Plan Problem List Problem List: Activity Tolerance, Functional Strength, Safety Treatment/Plan Treatment Plan: Continue Plan of Care Treatment Plan: Functional Activity Walker, Gait, Safety Treatment Duration: Oct 21, 2017 Frequency: 6 times per week Estimated Hrs Per Day: .25 hour per day Patient and/or Family Agrees t: Yes Safety Risks/Education Patient Education: Safety Issues Teaching Recipient: Patient Teaching Methods: Demonstration, Discussion Response to Teaching: Return Demonstration Time/GCodes Time In: 1500 Time Out: 1525 Total Billed Treatment Time: 25 Total Billed Treatment visit eVM 25 GIANLUCA NAVA PT Oct 19, 2017 15:53
[2017-10-19 16:00] VITALS: BP 169/88
[2017-10-19] MEDS: warFARin 2 MG (COUMADIN) TAB PO SCH (17:20)
[2017-10-19 20:00] VITALS: BP 145/92
[2017-10-20 00:14] VITALS: BP 137/69
[2017-10-20 00:25] VITALS: BP 125/86
[2017-10-20] MEDS: RT-ALBUTEROL/IPRATROPIUM 3 ML (DUONEB) VIAL INH SCH ×5 (02:15→18:32)
[2017-10-20 04:00] VITALS: BP 140/71
[2017-10-20] MEDS: CATHETER FLUSH 10 ML SYR IV SCH ×3 (06:25→22:26)
--- NOTE | 2017-10-20 06:53 | Pulmonary Progress Note ---
Subjective Time Seen by Provider: 06:58 Subjective/Events-last exam Pt still requiring oxygen and complains of SOB. SHe is coughing up yellow sputum now. Exam Exam Vital Signs Date Time Temp Pulse Resp B/P (MAP) Pulse Ox O2 Delivery O2 Flow Rate FiO2 10/20/17 04:00 96.2 90 18 140/71 (94) 90 NIV CPAP 10/20/17 02:15 93 NIV CPAP 4.00 10/20/17 00:25 96.1 101 18 125/86 (99) 93 NIV CPAP 10/19/17 21:40 92 Nasal Cannula 4.00 10/19/17 21:00 Nasal Cannula 4.00 10/19/17 20:00 97.8 100 22 145/92 (109) 91 Nasal Cannula 4.00 10/19/17 18:41 94 Nasal Cannula 4.00 10/19/17 16:00 98.6 89 20 169/88 (115) 92 Nasal Cannula 4.00 10/19/17 12:00 97.7 97 20 120/68 (85) 93 Nasal Cannula 4.00 10/19/17 10:30 92 Nasal Cannula 4.00 10/19/17 09:00 Nasal Cannula 4.00 10/19/17 08:00 98.4 89 20 132/79 (96) 93 Nasal Cannula 4.00 10/19/17 06:50 98 I & O 10/20/17 07:00 Intake Total 2240 ml Output Total 5205 ml Balance -2965 ml General Appearance: No Apparent Distress, WD/WN HEENT: PERRL/EOMI, TMs Normal, Normal ENT Inspection, Pharynx Normal Neck: Full Range of Motion, Normal Inspection, Non Tender, Supple Respiratory: No Accessory Muscle Use, No Respiratory Distress, Wheezing Cardiovascular: Regular Rate, Rhythm, No JVD Capillary Refill: Less Than 3 Seconds Extremity: Non Tender, No Calf Tenderness Neurologic/Psychiatric: Alert, Oriented x3, Normal Mood/Affect Skin: Normal Color, Warm/Dry Lymphatic: No Adenopathy Results Lab Laboratory Tests 10/19/17 05:35 Assessment/Plan Assessment/Plan Mycoplasma PNA - Rocephin and Azithromycin -SVNS CHF AE with pulmonary edema repeat Lasix 40mg x 1 -Cardiology following -Repeat CXR Tobacco dependance -Education COPD AE - prednisone taper -oxygen -- pt does not have home oxygen she will probably need it at discharge -SVNs TODD -Pt uses her CPAP machine at night. Hx of aortic valve replacement. Repeat labs and CXR pending. 233 Clinical Quality Measures DVT/VTE Risk/Contraindication: Risk Factor Score Per Nursin RFS Level Per Nursing on Admit: 4+=Very High THIEN KIRKPATRICK DO Oct 20, 2017 06:53
[2017-10-20] MEDS ORDERED: FUROSEMIDE 40 MG/4 ML INJ (LASIX) IVP NR (07:00)
[2017-10-20] MEDS ORDERED: KCL 20 MEQ TAB (K-DUR) PO ONE (07:00)
[2017-10-20 07:09] LABS: BASOPHILS % (AUTO) 0 % (0-10); EOSINOPHILS % (AUTO) 0 % (0-10); HEMATOCRIT 49 % (35-52); HEMOGLOBIN 15.9 G/DL (11.5-16.0); LYMPHOCYTES # (AUTO) 1.6 X 10^3 (1.0-4.0); LYMPHOCYTES % (AUTO) 16 % (12-44); MEAN CORPUSCULAR HEMOGLOBIN 28 PG (25-34); MEAN CORPUSCULAR HGB CONC 32 G/DL (32-36); MEAN CORPUSCULAR VOLUME 87 FL (80-99); MEAN PLATELET VOLUME 11.8 FL (7.4-10.4); MONOCYTES # (AUTO) 1.4 X 10^3 (0.0-1.0); MONOCYTES % (AUTO) 14 % (0-12); NEUTROPHILS # (AUTO) 7.1 X 10^3 (1.8-7.8); NEUTROPHILS % (AUTO) 70 % (42-75); PLATELET COUNT 283 10^3/uL (130-400); RED BLOOD COUNT 5.63 10^6/uL (4.35-5.85); RED CELL DISTRIBUTION WIDTH 18.1 % (10.0-14.5); WHITE BLOOD COUNT 10.2 10^3/uL (4.3-11.0)
[2017-10-20 07:23] LABS: BUN/CREATININE RATIO 29; CARBON DIOXIDE 30 MMOL/L (21-32); CHLORIDE 95 MMOL/L (98-107); CREATININE SERUM 0.86 MG/DL (0.60-1.30); GFR ESTIMATED > 60; GLUCOSE 72 MG/DL (70-105); MAGNESIUM 1.8 MG/DL (1.8-2.4); PHOSPHORUS 3.1 MG/DL (2.3-4.7); POTASSIUM 4.7 MMOL/L (3.6-5.0); SODIUM 137 MMOL/L (135-145)
[2017-10-20 07:24] LABS: INR 2.2 (0.8-1.4); PROTHROMBIN TIME PATIENT 24.7 SEC (12.2-14.7)
[2017-10-20 08:00] VITALS: BP 101/64
--- NOTE | 2017-10-20 08:00 | Diagnostic Imaging Report ---
INDICATION: Shortness of breath. COMPARISON: 10/17/2017. FINDINGS: Unchanged marked enlargement of the cardiac silhouette. Central vascular indistinctness along with heterogeneous interstitial and airspace opacities are unchanged. No pneumothorax. Decreased pulmonary vascular markings in the lung apices are most compatible with emphysema. No appreciable pleural effusion. IMPRESSION: Unchanged cardiomegaly with interstitial and airspace opacities in the lung bases which may be due to pulmonary edema. Underlying interstitial lung disease cannot be excluded. Dictated by: Dictated on workstation # [id number]
--- NOTE | 2017-10-20 08:08 | Cardiology Progress Note ---
Subjective Date Seen by Provider: Oct 20, 2017 Time Seen by Provider: 08:06 Subjective/Events-last exam patient is sitting in bed, still having some shortness of breath and congestion , mild cough, no chest pain Review of Systems General: No Chills, No Night Sweats, No Fatigue, No Malaise, No Appetite, No Other HEENT: No Head Aches, No Visual Changes, No Eye Pain, No Ear Pain, No Dysphasia , No Sinus Congestion, No Post Nasal Drip, No Sore Throat, No Other Pulmonary: Dyspnea, Cough, No Pleuritic Chest Pain, No Other Cardiovascular: No: Chest Pain, Palpitations, Orthopnea, Paroxysmal Noc. Dyspnea, Edema, Lt Headedness, Other Objective-Cardiology Exam Last Set of Vital Signs Vital Signs 10/20/17 10/20/17 04:00 07:15 Temp 96.2 Pulse 90 Resp 18 B/P (MAP) 140/71 (94) Pulse Ox 90 O2 Delivery Nasal Cannula O2 Flow Rate 4.00 Capillary Refill : Less Than 3 Seconds I&O Intake and Output 10/20/17 00:00 Intake Total 2240 ml Output Total 6155 ml Balance -3915 ml Intake Oral 2240 ml Output Urine Total 6155 ml # Bowel Movements 4 General: Alert, Oriented X3, Cooperative HEENT: Atraumatic, PERRLA Neck: Supple, No JVD, No Thyromegaly Lungs: Clear to Auscultation, Normal Air Movement Heart: Regular Rate, Normal S1, Normal S2, No Murmurs Abdomen: Normal Bowel Sounds, Soft, No Tenderness, No Hepatosplenomegaly, No Masses Extremities: No Clubbing, No Cyanosis, Normal Pulses, No Tenderness/Swelling Skin: No Rashes, No Breakdown, No Significant Lesion Neuro: Normal Gait, Normal Speech, Strength at 5/5 X4 Ext, Normal Tone, Sensation Intact Psych/Mental Status: Mental Status NL, Mood NL Results Lab Laboratory Tests 10/20/17 06:14 A/P-Cardiology Admission Diagnosis Acute respiratory failure Pneumonia Congestive heart failure Valvular heart disease Assessment/Plan Status post acute respiratory failure, acute exacerbation of COPD, better today. Continue on current medications and monitor. Sinus tachycardia secondary to hypoxemia, better today. Continue to monitor. Pneumonia, atypical, on Rocephin and Zithromax, feeling better today, continue on current treatment and monitor. Cyanosis and hypoxemia, secondary to above, continue with supportive care, slightly better. Congestive heart failure, Acute on chronic left ventricular systolic dysfunction , secondary to valvular heart disease, History of aortic valve replacement, ejection fraction 40 percent. planning to evaluate Lexiscan stress test History of aortic valve replacement, echocardiogram showed prosthetic valve is functioning normally, INR is 2.2, restart Coumadin and monitor INR Hypertension, blood pressure is better at this time. Continue to monitor Hyperlipidemia, monitor lipids Noncompliance with medication, monitor INR closely. BMI 33, we discussed weight loss, increased risk for diabetes. Clinical Quality Measures DVT/VTE Risk/Contraindication: Risk Factor Score Per Nursin RFS Level Per Nursing on Admit: 4+=Very High ALONZO AMADOR MD Oct 20, 2017 08:07
[2017-10-20] MEDS: cefTRIAXone INJECTION 1,000 MG in NS (IVPB) 50 ML IV SCH (09:14)
[2017-10-20] MEDS: NICOTINE 7 MG (NICODERM) PATCH TD SCH (09:16)
[2017-10-20] MEDS: NICOTINE PATCH REMOVAL TP SCH (09:16)
[2017-10-20] MEDS: predniSONE 10 MG TAB PO SCH (09:17)
[2017-10-20] MEDS: ALPRAZolam 0.5 MG (XANAX) TAB PO SCH ×2 (09:17→21:34)
[2017-10-20] MEDS: meTOprolol TARTRATE 25 MG (LOPRESSOR) TABLET PO SCH ×2 (09:17→21:34)
[2017-10-20] MEDS: LOSARTAN 25 MG (COZAAR) TAB PO SCH (09:17)
[2017-10-20] MEDS: AZITHROMYCIN 250 MG TAB (ZITHROMAX) PO SCH (09:17)
[2017-10-20] MEDS: POLYETHYLENE GLYCOL 17 GM (MIRALAX) PACK PO SCH ×2 (09:18→21:34)
--- NOTE | 2017-10-20 10:55 | Physical Therapy Daily Note ---
PT Daily Note-Current Subjective Patient agrees to PT. She has been up in her room independently without O2. SAO2 on 3L is 85%. Increased to 4L. Pain Numeric Pain Scale: 0-No Pain Location: No Pain Reported Mental Status Patient Orientation: Normal For Age Transfers Functional [place] Measure 0=Not Assessed/NA 4=Minimal Assistance 1=Total Assistance 5=Supervision or Setup 2=Maximal Assistance 6=Modified [place] 3=Moderate Assistance 7=Complete IndependenceIRFPAI Quality Coding Scale 6 Independent with activity with or without an assistive device 5 Patient requires set up or clean up by helper. Patient completes activity by themselves 4 Supervision or touching assist (CGA). Barney provide cues , steadying assist 3 The helper provides less than half the effort to complete the activity 2 The helper provides more than half the effort to complete the activity 1 Dependent. The helper does all the effort to complete an activity 7 Patient refused to complete or attempt activity 9 The patient did not perform the activity before the current illness or injury 88 Not attempted due to Medical conditions or safety concerns Transfers (B, C, W/C) (FIM): 7 Scootin Sit to/from Stand: 7 Weight Bearing Right Lower Extremity: Right Weight Bearing/Tolerated Left Lower Extremity: Left Weight Bearing/Tolerated Gait Training Gait (FIM): 7 Distance (FIM): 3=150 ft Distance: >800' Gait Level of Assist: 7 Gait Assistive Device: None safe and functional Assessment Patient is currently at independent PLOF with all gross motor skills. O2 tank left in room to allow patient to ambulate PRN in hallway with mask on. RT for home O2 evaluation during PT treatment. PT to dismiss patient from services due to PLOF. PT Chemist Goals Shelter Goals PT Shelter Goals Time Frame: Oct 21, 2017 Transfers (B,C,W/C) (FIM): 7 Gait (FIM): 7 PT Plan Treatment/Plan Treatment Plan: Discontinue PT, goals met Treatment Plan: Functional Activity Walker, Gait, Safety Treatment Duration: Oct 21, 2017 Frequency: 6 times per week Estimated Hrs Per Day: .25 hour per day Patient and/or Family Agrees t: Yes Time/GCodes Time In: 1018 Time Out: 1037 Total Billed Treatment Time: 19 Total Billed Treatment 1 visit FA 19 min MIGUEL SANTIAGO PT Oct 20, 2017 10:55
[2017-10-20] MEDS: ADVAIR HFA 115/21 MCG INHALER 8 GM IH SCH (11:49)
[2017-10-20 12:58] VITALS: BP 126/74
--- NOTE | 2017-10-20 13:35 | Progress Note-Hospitalist ---
Subjective HPI/CC On Admission Date Seen by Provider: Oct 20, 2017 Time Seen by Provider: 13:00 CC: Dyspnea HPI: This is a 56-year-old white female clinic patient of Dr. Busby who was sent to [facility] ER after she was seen at Dr. Lucero's office at [facility] clinic. She adjusted become established with cardiology after several years of no follow-up with a history of cardiac valve repair and bypass surgery who presents to the [facility] MedSurg after she was found to have mycoplasma pneumonia and heart failure in the ER. She was found to have elevated BNP consistent with volume overload and mycoplasma and with infiltrates on chest x-ray. She continues to smoke although she has been trying to quit. She is maintained on Coumadin for anticoagulation for valve replacement and overall she is had major decline in the last couple weeks. Due to the fact that she needed pulmonary and cardiology follow-up she was transferred to higher level of care on my service at [facility] in [place]. Subjective/Events-last exam Pt reports feeling better. Has been up and walking around. Is unsure what capacity her machine at home has for concentrating oxygen. Objective Exam Vital Signs Vital Sign - Last 12Hours 10/16/17 10/16/17 10/16/17 10:15 10:24 10:30 Temp 98.9 Pulse 105 Resp 33 B/P (MAP) 104/89 (94) Pulse Ox 93 O2 Delivery Nasal Cannula O2 Flow Rate 6.00 Capillary Refill : Less Than 3 Seconds General Appearance: No Apparent Distress, WD/WN Respiratory: Lungs Clear, No Respiratory Distress Cardiovascular: Regular Rate, Rhythm, Systolic Murmur Neurologic/Psychiatric: Alert, Oriented x3, Normal Mood/Affect Results/Procedures Lab Laboratory Tests 10/20/17 06:14 Assessment/Plan Assessment and Plan Assess & Plan/Chief Complaint CAP Diagnosis/Problems Diagnosis/Problems (1) Mycoplasmal pneumonia Status: Acute Assessment & Plan: +mycoplasma per OSH Continue on Rocephin and Azithro MAT protocol Prednisone taper Pulm consulted, appreciate recs Qualifiers: Qualified Codes: J15.7 - Pneumonia due to Mycoplasma pneumoniae (2) CHF (congestive heart failure), NYHA class III Status: Acute Assessment & Plan: Cardiology consulted, appreciate recs Continue Metoprolol, Losartan Echo shows EF 40-45% Planning stress test in AM Qualifiers: Qualified Codes: I50.9 - Heart failure, unspecified (3) COPD (chronic obstructive pulmonary disease) Assessment & Plan: Continue Steroids, Advair, Albuterol prn MAT Protocol Pulm consulted Titrate oxygen to keep sats> 89 Wears 2lpm at home- has DME there per patient but unsure of capacity if higher levels are needed Qualifiers: Qualified Codes: J44.9 - Chronic obstructive pulmonary disease, unspecified (4) Tobacco abuse Status: Chronic Assessment & Plan: Attempting cessation Nicotine patch (5) Aortic valve replaced Assessment & Plan: as seen on echo INR 2.2, continue coumadin Cards consulted ENRRIQUE RAWLS MD Oct 20, 2017 13:35
[2017-10-20 16:00] VITALS: BP 131/72
[2017-10-20] MEDS: warFARin 2 MG (COUMADIN) TAB PO SCH (19:06)
[2017-10-21] VITALS: BP 146/95
[2017-10-21] MEDS: RT-ALBUTEROL/IPRATROPIUM 3 ML (DUONEB) VIAL INH SCH ×7 (00:22→22:06)
[2017-10-21 01:18] VITALS: BP 146/95
[2017-10-21] MEDS: CATHETER FLUSH 10 ML SYR IV SCH ×3 (05:19→21:00)
[2017-10-21 06:16] LABS: BASOPHILS % (AUTO) 0 % (0-10); EOSINOPHILS # (AUTO) 0.1 10^3/uL (0.0-0.3); EOSINOPHILS % (AUTO) 1 % (0-10); HEMATOCRIT 49 % (35-52); HEMOGLOBIN 15.6 G/DL (11.5-16.0); LYMPHOCYTES # (AUTO) 1.8 X 10^3 (1.0-4.0); LYMPHOCYTES % (AUTO) 21 % (12-44); MEAN CORPUSCULAR HEMOGLOBIN 28 PG (25-34); MEAN CORPUSCULAR HGB CONC 32 G/DL (32-36); MEAN CORPUSCULAR VOLUME 87 FL (80-99); MEAN PLATELET VOLUME 11.7 FL (7.4-10.4); MONOCYTES # (AUTO) 0.9 X 10^3 (0.0-1.0); MONOCYTES % (AUTO) 11 % (0-12); NEUTROPHILS # (AUTO) 5.8 X 10^3 (1.8-7.8); NEUTROPHILS % (AUTO) 68 % (42-75); PLATELET COUNT 279 10^3/uL (130-400); RED BLOOD COUNT 5.58 10^6/uL (4.35-5.85); RED CELL DISTRIBUTION WIDTH 17.3 % (10.0-14.5); WHITE BLOOD COUNT 8.5 10^3/uL (4.3-11.0)
[2017-10-21 06:28] LABS: PROTHROMBIN TIME PATIENT 22.2 SEC (12.2-14.7)
[2017-10-21 06:37] LABS: BUN/CREATININE RATIO 29; CALCIUM 8.9 MG/DL (8.5-10.1); CARBON DIOXIDE 33 MMOL/L (21-32); CHLORIDE 95 MMOL/L (98-107); CREATININE SERUM 0.83 MG/DL (0.60-1.30); GFR ESTIMATED > 60; GLUCOSE 76 MG/DL (70-105); MAGNESIUM 1.9 MG/DL (1.8-2.4); PHOSPHORUS 2.9 MG/DL (2.3-4.7); POTASSIUM 4.9 MMOL/L (3.6-5.0); SODIUM 139 MMOL/L (135-145)
[2017-10-21] MEDS: ADVAIR HFA 115/21 MCG INHALER 8 GM IH SCH (06:37)
[2017-10-21] MEDS ORDERED: FUROSEMIDE 40 MG/4 ML INJ (LASIX) IVP NR (07:44)
[2017-10-21 08:20] VITALS: BP 123/78
[2017-10-21] MEDS: NICOTINE PATCH REMOVAL TP SCH (08:38)
[2017-10-21] MEDS: NICOTINE 7 MG (NICODERM) PATCH TD SCH (08:38)
--- NOTE | 2017-10-21 08:50 | Pulmonary Progress Note ---
Subjective Time Seen by Provider: 08:49 Subjective/Events-last exam no complications noted. Pt is doing better. Exam Exam Vital Signs Date Time Temp Pulse Resp B/P (MAP) Pulse Ox O2 Delivery O2 Flow Rate FiO2 10/21/17 08:20 97.5 102 18 123/78 (93) 94 Nasal Cannula 2.50 10/21/17 06:40 93 Nasal Cannula 4.00 10/21/17 06:37 93 Nasal Cannula 4.00 10/21/17 02:34 90 Nasal Cannula 4.00 10/21/17 01:18 98.6 93 22 146/95 (112) 93 NIV CPAP 4.00 10/20/17 21:00 Nasal Cannula 4.00 10/20/17 18:32 90 Nasal Cannula 4.00 10/20/17 16:00 97.0 106 22 131/72 (91) 95 Nasal Cannula 4.00 10/20/17 13:58 92 Nasal Cannula 4.00 10/20/17 12:58 98.3 109 20 126/74 (91) 91 Nasal Cannula 4.00 10/20/17 11:50 93 Nasal Cannula 4.00 10/20/17 11:49 93 Nasal Cannula 4.00 10/20/17 10:36 92 5.00 10/20/17 09:00 Nasal Cannula 4.00 I & O 10/21/17 07:00 Intake Total 1600 ml Output Total 2200 ml Balance -600 ml General Appearance: No Apparent Distress, WD/WN HEENT: PERRL/EOMI, TMs Normal, Normal ENT Inspection, Pharynx Normal Neck: Full Range of Motion, Normal Inspection, Non Tender, Supple Respiratory: Lungs Clear, No Respiratory Distress Cardiovascular: Regular Rate, Rhythm, Systolic Murmur Capillary Refill: Less Than 3 Seconds Extremity: Non Tender, No Calf Tenderness Neurologic/Psychiatric: Alert, Oriented x3, Normal Mood/Affect Skin: Normal Color, Warm/Dry Lymphatic: No Adenopathy Results Lab Laboratory Tests 10/20/17 06:14 10/21/17 05:51 Assessment/Plan Assessment/Plan Mycoplasma PNA - Rocephin and Azithromycin -- D/C after 5days of treatemtn -SVNS CHF AE with pulmonary edema repeat Lasix 40mg x 1 -Cardiology following -Repeat CXR Tobacco dependance -Education COPD AE - prednisone taper -oxygen -- pt does not have home oxygen she will probably need it at discharge -SVNs TODD -Pt uses her CPAP machine at night. Hx of aortic valve replacement. 232 Clinical Quality Measures DVT/VTE Risk/Contraindication: Risk Factor Score Per Nursin RFS Level Per Nursing on Admit: 4+=Very High THIEN KIRKPATRICK DO Oct 21, 2017 08:49
--- NOTE | 2017-10-21 11:13 | Cardiology Progress Note ---
Subjective Date Seen by Provider: Oct 21, 2017 Time Seen by Provider: 11:11 Subjective/Events-last exam patient is in bed, still having some cough, denied any chest pain. Review of Systems General: No Chills, No Night Sweats, No Fatigue, No Malaise, No Appetite, No Other HEENT: No Head Aches, No Visual Changes, No Eye Pain, No Ear Pain, No Dysphasia , No Sinus Congestion, No Post Nasal Drip, No Sore Throat, No Other Pulmonary: Dyspnea, Cough, No Pleuritic Chest Pain, No Other Cardiovascular: No: Chest Pain, Palpitations, Orthopnea, Paroxysmal Noc. Dyspnea, Edema, Lt Headedness, Other Objective-Cardiology Exam Last Set of Vital Signs Vital Signs 10/21/17 10/21/17 08:20 10:45 Temp 97.5 Pulse 102 Resp 18 B/P (MAP) 123/78 (93) Pulse Ox 81 O2 Delivery Nasal Cannula O2 Flow Rate 4.00 Capillary Refill : Less Than 3 Seconds I&O Intake and Output 10/21/17 00:00 Intake Total 1550 ml Output Total 1300 ml Balance 250 ml Intake Oral 1550 ml Output Urine Total 1300 ml # Voids 6 # Bowel Movements 1 General: Alert, Oriented X3, Cooperative HEENT: Atraumatic, PERRLA Neck: Supple, No JVD, No Thyromegaly Lungs: Clear to Auscultation, Normal Air Movement Heart: Regular Rate, Normal S1, Normal S2, No Murmurs Abdomen: Normal Bowel Sounds, Soft, No Tenderness, No Hepatosplenomegaly, No Masses Extremities: No Clubbing, No Cyanosis, Normal Pulses, No Tenderness/Swelling Skin: No Rashes, No Breakdown, No Significant Lesion Neuro: Normal Gait, Normal Speech, Strength at 5/5 X4 Ext, Normal Tone, Sensation Intact Psych/Mental Status: Mental Status NL, Mood NL Results Lab Laboratory Tests 10/21/17 05:51 A/P-Cardiology Admission Diagnosis Acute respiratory failure Pneumonia Congestive heart failure Valvular heart disease Assessment/Plan Status post acute respiratory failure, acute exacerbation of COPD, improving, feeling better, continue on current treatment and monitor. Pneumonia, atypical, on Rocephin and Zithromax, feeling better today, continue on current treatment and monitor. Cyanosis and hypoxemia, secondary to above, continue with supportive care, slightly better. Congestive heart failure, Acute on chronic left ventricular systolic dysfunction , secondary to valvular heart disease, History of aortic valve replacement, ejection fraction 40 percent. planning to evaluate Lexiscan stress test History of aortic valve replacement, echocardiogram showed prosthetic valve is functioning normally, INR is 2.0, continue Coumadin and monitor INR Hypertension, blood pressure is better at this time. Continue to monitor Hyperlipidemia, monitor lipids Noncompliance with medication, monitor INR closely. BMI 33, we discussed weight loss, increased risk for diabetes. Clinical Quality Measures DVT/VTE Risk/Contraindication: Risk Factor Score Per Nursin RFS Level Per Nursing on Admit: 4+=Very High ALONZO AMADOR MD Oct 21, 2017 11:13
[2017-10-21] MEDS ORDERED: REGADENOSON 0.4 MG/5 ML SYR (LEXISCAN) IV ONE ×2 (13:05→14:45)
--- NOTE | 2017-10-21 13:09 | Progress Note (SOAP) ---
Subjective HPI/CC On Admission Date Seen by Provider: Oct 21, 2017 Time Seen by Provider: 10:30 CC: Dyspnea HPI: This is a 56-year-old white female clinic patient of Dr. Busby who was sent to [facility] ER after she was seen at Dr. Lucero's office at [facility] clinic. She adjusted become established with cardiology after several years of no follow-up with a history of cardiac valve repair and bypass surgery who presents to the [facility] MedSurg after she was found to have mycoplasma pneumonia and heart failure in the ER. She was found to have elevated BNP consistent with volume overload and mycoplasma and with infiltrates on chest x-ray. She continues to smoke although she has been trying to quit. She is maintained on Coumadin for anticoagulation for valve replacement and overall she is had major decline in the last couple weeks. Due to the fact that she needed pulmonary and cardiology follow-up she was transferred to higher level of care on my service at [facility] in [place]. Subjective/Events-last exam No acute events overnight. Patient awake and lying in bed comfortably this morning. Patient reports occasional nose bleeds from continuous oxygen administration. She continues to have a good appetite and is eating well. Patient is having normal bowel movements, and denies any difficulty urinating. Breathing continues to improve. Denies fever, chills, sweats, chest pain, shortness of breath, abdominal pain, n/v/d/c. Review of Systems HEENT: Other (epistaxis) Objective Exam Vital Signs Vital Sign - Last 12Hours 10/16/17 10/16/17 10/16/17 10:15 10:24 10:30 Temp 98.9 Pulse 105 Resp 33 B/P (MAP) 104/89 (94) Pulse Ox 93 O2 Delivery Nasal Cannula O2 Flow Rate 6.00 Capillary Refill : Less Than 3 Seconds General Appearance: Obese Eyes: Bilateral Eye Normal Inspection Neck: Full Range of Motion, Normal Inspection, Supple Respiratory: Lungs Clear, Normal Breath Sounds, No Accessory Muscle Use, No Respiratory Distress Cardiovascular: Regular Rate, Rhythm, No Edema, Normal Peripheral Pulses Gastrointestinal: Normal Bowel Sounds, Non Tender, Soft Extremity: Normal Inspection Neurologic/Psychiatric: Alert, No Motor/Sensory Deficits Skin: Normal Color, Warm/Dry Results/Procedures Lab Laboratory Tests 10/21/17 05:51 Assessment/Plan Assessment and Plan Assess & Plan/Chief Complaint Community Acquired Pneumonia Diagnosis/Problems Diagnosis/Problems (1) Mycoplasmal pneumonia Status: Acute Assessment & Plan: Continue ceftriaxone and azithromycin, D/C 10/22/17 Pulmonary following, appreciate recs Qualifiers: Qualified Codes: J15.7 - Pneumonia due to Mycoplasma pneumoniae (2) CHF (congestive heart failure), NYHA class III Status: Acute Assessment & Plan: Continue metoprolol and losartan Lasix 40mg x1 Lexiscan stress test today Repeat CXR Cardiology following, appreciate recs Qualifiers: Qualified Codes: I50.9 - Heart failure, unspecified (3) COPD (chronic obstructive pulmonary disease) Status: Chronic Assessment & Plan: Continue prednisone taper Continue fluticasone/salmeterol and duonebs Continue O2 NC with goal spO2 >89 Patient will likely require home oxygen upon discharge Qualifiers: Qualified Codes: J44.9 - Chronic obstructive pulmonary disease, unspecified (4) Tobacco abuse Status: Chronic Assessment & Plan: Continue nicoderm patch Smoking cessation education (5) Heart valve replaced Assessment & Plan: Continue warfarin INR: 2.0, monitor Echo: valve functioning appropriately TALI MOON MED STUDENT Oct 21, 2017 13:09
[2017-10-21 14:31] VITALS: BP 127/95
[2017-10-21] MEDS: meTOprolol TARTRATE 25 MG (LOPRESSOR) TABLET PO SCH ×2 (15:43→21:32)
[2017-10-21] MEDS: ALPRAZolam 0.5 MG (XANAX) TAB PO SCH ×2 (15:44→21:33)
[2017-10-21] MEDS: POLYETHYLENE GLYCOL 17 GM (MIRALAX) PACK PO SCH ×2 (15:44→21:33)
[2017-10-21] MEDS: LOSARTAN 25 MG (COZAAR) TAB PO SCH (16:10)
[2017-10-21] MEDS: AZITHROMYCIN 250 MG TAB (ZITHROMAX) PO SCH (16:10)
[2017-10-21] MEDS: predniSONE 10 MG TAB PO SCH (16:10)
--- NOTE | 2017-10-21 16:33 | Progress Note-Hospitalist ---
Subjective HPI/CC On Admission Date Seen by Provider: Oct 21, 2017 Time Seen by Provider: 14:50 CC: Dyspnea HPI: This is a 56-year-old white female clinic patient of Dr. Busby who was sent to [facility] ER after she was seen at Dr. Lucero's office at [facility] clinic. She adjusted become established with cardiology after several years of no follow-up with a history of cardiac valve repair and bypass surgery who presents to the [facility] MedSurg after she was found to have mycoplasma pneumonia and heart failure in the ER. She was found to have elevated BNP consistent with volume overload and mycoplasma and with infiltrates on chest x-ray. She continues to smoke although she has been trying to quit. She is maintained on Coumadin for anticoagulation for valve replacement and overall she is had major decline in the last couple weeks. Due to the fact that she needed pulmonary and cardiology follow-up she was transferred to higher level of care on my service at [facility] in [place]. Subjective/Events-last exam Pt reports feeling well. She reports "cheating" with her oxygen earlier. She took her NC off because it was bothering her and he sats dropped significantly. Objective Exam Vital Signs Vital Sign - Last 12Hours 10/16/17 10/16/17 10/16/17 10:15 10:24 10:30 Temp 98.9 Pulse 105 Resp 33 B/P (MAP) 104/89 (94) Pulse Ox 93 O2 Delivery Nasal Cannula O2 Flow Rate 6.00 Capillary Refill : Less Than 3 SecondsLess Than 3 Seconds General Appearance: No Apparent Distress, WD/WN Respiratory: No Accessory Muscle Use, No Respiratory Distress, Decreased Breath Sounds (in bases) Cardiovascular: Regular Rate, Rhythm, No Murmur Gastrointestinal: Normal Bowel Sounds, Non Tender, Soft Results/Procedures Lab Laboratory Tests 10/21/17 05:51 Assessment/Plan Assessment and Plan Assess & Plan/Chief Complaint CAP Diagnosis/Problems Diagnosis/Problems (1) Mycoplasmal pneumonia Status: Acute Assessment & Plan: +mycoplasma per OSH Complete Azithro tomorrow MAT protocol Prednisone taper Pulm consulted, appreciate recs Qualifiers: Qualified Codes: J15.7 - Pneumonia due to Mycoplasma pneumoniae (2) CHF (congestive heart failure), NYHA class III Status: Acute Assessment & Plan: Cardiology consulted, appreciate recs Continue Metoprolol, Losartan Echo shows EF 40-45% In Nuclear Med for stress test during my exam Qualifiers: Qualified Codes: I50.9 - Heart failure, unspecified (3) COPD (chronic obstructive pulmonary disease) Status: Chronic Assessment & Plan: Continue Steroids, Advair, Albuterol prn MAT Protocol Pulm consulted Titrate oxygen to keep sats> 89 Wears 2lpm at home- has DME there per patient but unsure of capacity if higher levels are needed Qualifiers: Qualified Codes: J44.9 - Chronic obstructive pulmonary disease, unspecified (4) Tobacco abuse Status: Chronic Assessment & Plan: Attempting cessation Nicotine patch (5) Aortic valve replaced Assessment & Plan: as seen on echo INR 2.0, continue coumadin Cards consulted ENRRIQUE RAWLS MD Oct 21, 2017 16:33
[2017-10-21 16:45] VITALS: BP 146/102
[2017-10-21] MEDS: warFARin 2 MG (COUMADIN) TAB PO SCH (18:17)
[2017-10-21] MEDS: ACETAMINOPHEN 500 MG TAB (TYLENOL) PO PRN (21:32)
[2017-10-22 00:10] VITALS: BP 135/78
--- NOTE | 2017-10-22 01:29 | STRESS TEST ---
DATE OF SERVICE: 10/21/2017 LEXISCAN MYOVIEW STRESS TEST REPORT REFERRING PHYSICIANS: Dr. Jung and Dr. Andino. Baseline heart rate is 105. Baseline blood pressure 142/109. Baseline EKG is sinus rhythm with no ischemic changes. In summary, the patient was injected with 10.26 mCi of technetium-99 Myoview and the resting images were obtained. Then, the patient received 0.4 mg of Lexiscan followed by 32.7 mCi of technetium-99 Myoview. Throughout the test, there were no EKG changes. The resting and stress images were reviewed and compared in the short axis, horizontal long axis, and vertical long axis views. Review of the images showed breast attenuation with reverse ischemia involving the whole anterior wall and anterolateral wall. SSS is 14, SDS 6. TID value 1.17. On the gated images, the left ventricle appeared to be normal size with normal contractility, calculated ejection fraction 51%. CONCLUSION: 1. The patient tolerated Lexiscan well. 2. Breast attenuation with questionable ischemia involving the whole anterior wall and anterolateral wall. 3. Normal left ventricular size with normal contractility. Calculated ejection fraction 51%. Job ID: [id number] DocumentID: [id number] Dictated Date: 10/21/2017 17:41:50 Hotbed Transfer Operator Date: 10/22/2017 00:04:30 Dictated By: ALONZO AMADOR MD
[2017-10-22] MEDS: RT-ALBUTEROL/IPRATROPIUM 3 ML (DUONEB) VIAL INH SCH ×7 (01:37→21:12)
[2017-10-22] MEDS: CATHETER FLUSH 10 ML SYR IV SCH ×3 (05:38→20:57)
[2017-10-22 06:18] LABS: BASOPHILS % (AUTO) 0 % (0-10); EOSINOPHILS % (AUTO) 1 % (0-10); HEMATOCRIT 51 % (35-52); HEMOGLOBIN 16.3 G/DL (11.5-16.0); LYMPHOCYTES # (AUTO) 1.3 X 10^3 (1.0-4.0); LYMPHOCYTES % (AUTO) 15 % (12-44); MEAN CORPUSCULAR HEMOGLOBIN 28 PG (25-34); MEAN CORPUSCULAR HGB CONC 32 G/DL (32-36); MEAN CORPUSCULAR VOLUME 87 FL (80-99); MEAN PLATELET VOLUME 11.6 FL (7.4-10.4); MONOCYTES # (AUTO) 0.8 X 10^3 (0.0-1.0); MONOCYTES % (AUTO) 9 % (0-12); NEUTROPHILS # (AUTO) 6.7 X 10^3 (1.8-7.8); NEUTROPHILS % (AUTO) 76 % (42-75); PLATELET COUNT 305 10^3/uL (130-400); RED BLOOD COUNT 5.83 10^6/uL (4.35-5.85); RED CELL DISTRIBUTION WIDTH 17.8 % (10.0-14.5); WHITE BLOOD COUNT 8.8 10^3/uL (4.3-11.0)
[2017-10-22 06:33] LABS: PROTHROMBIN TIME PATIENT 22.3 SEC (12.2-14.7)
[2017-10-22 06:45] LABS: BUN/CREATININE RATIO 27; CALCIUM 9.2 MG/DL (8.5-10.1); CARBON DIOXIDE 31 MMOL/L (21-32); CHLORIDE 95 MMOL/L (98-107); CREATININE SERUM 0.78 MG/DL (0.60-1.30); GFR ESTIMATED > 60; GLUCOSE 80 MG/DL (70-105); PHOSPHORUS 3.5 MG/DL (2.3-4.7); POTASSIUM 4.7 MMOL/L (3.6-5.0); SODIUM 136 MMOL/L (135-145)
[2017-10-22] MEDS: ADVAIR HFA 115/21 MCG INHALER 8 GM IH SCH (06:53)
--- NOTE | 2017-10-22 07:56 | Cardiology Progress Note ---
Subjective Date Seen by Provider: Oct 22, 2017 Time Seen by Provider: 07:55 Subjective/Events-last exam Patient is laying down in bed, feeling better, denied any chest pain. Denied any palpitation, still having cough. Review of Systems General: No Chills, No Night Sweats, No Fatigue, No Malaise, No Appetite, No Other HEENT: No Head Aches, No Visual Changes, No Eye Pain, No Ear Pain, No Dysphasia , No Sinus Congestion, No Post Nasal Drip, No Sore Throat, No Other Pulmonary: Dyspnea, Cough, No Pleuritic Chest Pain, No Other Cardiovascular: No: Chest Pain, Palpitations, Orthopnea, Paroxysmal Noc. Dyspnea, Edema, Lt Headedness, Other Objective-Cardiology Exam Last Set of Vital Signs Vital Signs 10/22/17 10/22/17 00:10 06:53 Temp 98.1 Pulse 94 Resp 19 B/P (MAP) 135/78 (97) Pulse Ox 90 O2 Delivery Nasal Cannula O2 Flow Rate 4.00 Capillary Refill : Less Than 3 SecondsLess Than 3 Seconds I&O Intake and Output 10/22/17 00:00 Intake Total 1690 ml Output Total 3050 ml Balance -1360 ml Intake Oral 1440 ml IV Total 250 ml Output Urine Total 3050 ml # Bowel Movements 1 Daily Weight Change No General: Alert, Oriented X3, Cooperative HEENT: Atraumatic, PERRLA Neck: Supple, No JVD, No Thyromegaly Lungs: Clear to Auscultation, Normal Air Movement Heart: Regular Rate, Normal S1, Normal S2, No Murmurs Abdomen: Normal Bowel Sounds, Soft, No Tenderness, No Hepatosplenomegaly, No Masses Extremities: No Clubbing, No Cyanosis, Normal Pulses, No Tenderness/Swelling Skin: No Rashes, No Breakdown, No Significant Lesion Neuro: Normal Gait, Normal Speech, Strength at 5/5 X4 Ext, Normal Tone, Sensation Intact Psych/Mental Status: Mental Status NL, Mood NL Results Lab Laboratory Tests 10/22/17 06:05 A/P-Cardiology Admission Diagnosis Acute respiratory failure Pneumonia Congestive heart failure Valvular heart disease Assessment/Plan Status post acute respiratory failure, acute exacerbation of COPD, improving, feeling better, continue on current treatment and monitor. Pneumonia, atypical, on Rocephin and Zithromax, proving, continue current treatment Coronary artery disease, abnormal stress test, planning to proceed with cardiac catheterization tomorrow, hold Coumadin today. Cyanosis and hypoxemia, secondary to above, continue with supportive care, slightly better. Congestive heart failure, Acute on chronic left ventricular systolic dysfunction , secondary to valvular heart disease, History of aortic valve replacement, ejection fraction 40 percent. planning to evaluate Lexiscan stress test History of aortic valve replacement, echocardiogram showed prosthetic valve is functioning normally, INR is 2.0, continue Coumadin and monitor INR Hypertension, blood pressure is better at this time. Continue to monitor Hyperlipidemia, monitor lipids Noncompliance with medication, monitor INR closely. BMI 33, we discussed weight loss, increased risk for diabetes. Clinical Quality Measures DVT/VTE Risk/Contraindication: Risk Factor Score Per Nursin RFS Level Per Nursing on Admit: 4+=Very High ALONZO AMADOR MD Oct 22, 2017 07:56
[2017-10-22 08:30] VITALS: BP 121/75
[2017-10-22] MEDS: NICOTINE PATCH REMOVAL TP SCH (08:32)
[2017-10-22] MEDS: POLYETHYLENE GLYCOL 17 GM (MIRALAX) PACK PO SCH ×2 (08:32→20:57)
[2017-10-22] MEDS: ALPRAZolam 0.5 MG (XANAX) TAB PO SCH ×2 (08:32→20:57)
[2017-10-22] MEDS: LOSARTAN 25 MG (COZAAR) TAB PO SCH (08:32)
[2017-10-22] MEDS: NICOTINE 7 MG (NICODERM) PATCH TD SCH (08:32)
[2017-10-22] MEDS: predniSONE 10 MG TAB PO SCH (08:33)
[2017-10-22] MEDS: AZITHROMYCIN 250 MG TAB (ZITHROMAX) PO SCH (08:33)
[2017-10-22] MEDS: meTOprolol TARTRATE 25 MG (LOPRESSOR) TABLET PO SCH ×2 (08:33→20:57)
--- NOTE | 2017-10-22 10:52 | Progress Note-Hospitalist ---
Subjective HPI/CC On Admission Date Seen by Provider: Oct 22, 2017 Time Seen by Provider: 10:47 CC: Dyspnea HPI: This is a 56-year-old white female clinic patient of Dr. Busby who was sent to [facility] ER after she was seen at Dr. Lucero's office at [facility] clinic. She adjusted become established with cardiology after several years of no follow-up with a history of cardiac valve repair and bypass surgery who presents to the [facility] MedSurg after she was found to have mycoplasma pneumonia and heart failure in the ER. She was found to have elevated BNP consistent with volume overload and mycoplasma and with infiltrates on chest x-ray. She continues to smoke although she has been trying to quit. She is maintained on Coumadin for anticoagulation for valve replacement and overall she is had major decline in the last couple weeks. Due to the fact that she needed pulmonary and cardiology follow-up she was transferred to higher level of care on my service at [facility] in [place]. Subjective/Events-last exam Reports feeling well. Breathing better. Admits to taking herself off of oxygen at times because it bothers her. Objective Exam Vital Signs Vital Sign - Last 12Hours 10/16/17 10/16/17 10/16/17 10:15 10:24 10:30 Temp 98.9 Pulse 105 Resp 33 B/P (MAP) 104/89 (94) Pulse Ox 93 O2 Delivery Nasal Cannula O2 Flow Rate 6.00 Capillary Refill : Less Than 3 SecondsLess Than 3 Seconds General Appearance: No Apparent Distress, WD/WN Respiratory: No Accessory Muscle Use, No Respiratory Distress, Decreased Breath Sounds, Other (on 4lpm) Neurologic/Psychiatric: Alert, Oriented x3, Normal Mood/Affect Results/Procedures Lab Laboratory Tests 10/22/17 06:05 Assessment/Plan Assessment and Plan Assess & Plan/Chief Complaint CAP Diagnosis/Problems Diagnosis/Problems (1) Mycoplasmal pneumonia Status: Acute Assessment & Plan: +mycoplasma per OSH Completed abx today MAT protocol Prednisone taper Pulm consulted, appreciate recs Qualifiers: Qualified Codes: J15.7 - Pneumonia due to Mycoplasma pneumoniae (2) CAD (coronary artery disease) Status: Chronic Assessment & Plan: had lexiscan yesterday, high risk study Plan for cath tomorrow Cardiology consulted, appreciate recs Qualifiers: Qualified Codes: I25.10 - Atherosclerotic heart disease of [place] coronary artery without angina pectoris (3) CHF (congestive heart failure), NYHA class III Status: Acute Assessment & Plan: Cardiology consulted, appreciate recs Continue Metoprolol, Losartan Echo shows EF 40-45% Qualifiers: Qualified Codes: I50.9 - Heart failure, unspecified (4) COPD (chronic obstructive pulmonary disease) Status: Chronic Assessment & Plan: Continue Steroid taper, Advair, Albuterol prn MAT Protocol Pulm consulted Titrate oxygen to keep sats> 89 Wears 2lpm at home- has DME there per patient but unsure of capacity if higher levels are needed Qualifiers: Qualified Codes: J44.9 - Chronic obstructive pulmonary disease, unspecified (5) Tobacco abuse Status: Chronic Assessment & Plan: Attempting cessation Nicotine patch (6) Aortic valve replaced Assessment & Plan: as seen on echo INR 2.0, Holding coumadin for cath Cards consulted ENRRIQUE RAWLS MD Oct 22, 2017 10:52
--- NOTE | 2017-10-22 15:41 | Pulmonary Progress Note ---
Subjective Time Seen by Provider: 08:23 Subjective/Events-last exam No complications noted. Exam Exam Vital Signs Date Time Temp Pulse Resp B/P (MAP) Pulse Ox O2 Delivery O2 Flow Rate FiO2 10/22/17 14:29 95 Nasal Cannula 4.00 10/22/17 11:15 96 Nasal Cannula 4.00 10/22/17 08:30 98.2 103 20 121/75 (90) 93 Nasal Cannula 4.00 10/22/17 08:00 93 Nasal Cannula 4.00 10/22/17 06:53 90 Nasal Cannula 4.00 10/22/17 01:37 90 NIV CPAP 4.00 10/22/17 00:10 98.1 94 19 135/78 (97) 92 Nasal Cannula 3.00 10/21/17 22:09 91 NIV CPAP 4.00 10/21/17 21:00 Nasal Cannula 4.00 10/21/17 19:31 91 Nasal Cannula 4.00 10/21/17 16:45 98.2 102 20 146/102 (117) 94 Nasal Cannula 3.00 I & O 10/22/17 07:00 Intake Total 1540 ml Output Total 2550 ml Balance -1010 ml General Appearance: No Apparent Distress, WD/WN HEENT: PERRL/EOMI, TMs Normal, Normal ENT Inspection, Pharynx Normal Neck: Full Range of Motion, Normal Inspection, Supple Respiratory: No Accessory Muscle Use, No Respiratory Distress, Decreased Breath Sounds, Other (on 4lpm) Cardiovascular: Regular Rate, Rhythm, No Murmur Capillary Refill: Less Than 3 Seconds Extremity: Normal Inspection Neurologic/Psychiatric: Alert, Oriented x3, Normal Mood/Affect Skin: Normal Color, Warm/Dry Lymphatic: No Adenopathy Results Lab Laboratory Tests 10/21/17 05:51 10/22/17 06:05 Assessment/Plan Assessment/Plan Mycoplasma PNA- resolving -SVNS CHF AE with pulmonary edema lasix -Cardiology following -Repeat CXR Tobacco dependance -Education COPD AE - prednisone taper -oxygen -- pt does not have home oxygen she will probably need it at discharge -SVNs TODD -Pt uses her CPAP machine at night. Hx of aortic valve replacement. 232 Clinical Quality Measures DVT/VTE Risk/Contraindication: Risk Factor Score Per Nursin RFS Level Per Nursing on Admit: 4+=Very High THIEN KIRKPATRICK DO Oct 22, 2017 15:41
--- NOTE | 2017-10-22 16:24 | Diagnostic Imaging Report ---
INDICATION: Dyspnea. PA and lateral views of the chest are obtained with comparison made to study of 10/20/2018. FINDINGS: There is air trapping in the upper lobes similar to previous study. Interstitial markings are also prominent similar to previous exam. There is mild generalized cardiomegaly. Mediastinal surgical changes are noted. No pneumothorax identified. There may be mild overall increase in central pulmonary density suggestive of possible pulmonary edema. IMPRESSION: Findings are most suggestive of COPD similar to previous examination with probable mild superimposed central edema or pneumonitis. Additional radiographic followup would be useful to document stability or resolution. Dictated by: Dictated on workstation # [id number]
[2017-10-22 16:29] VITALS: BP 133/81
[2017-10-23 00:01] VITALS: BP 139/81
[2017-10-23] MEDS: RT-ALBUTEROL/IPRATROPIUM 3 ML (DUONEB) VIAL INH SCH ×4 (02:35→15:05)
[2017-10-23] MEDS: CATHETER FLUSH 10 ML SYR IV SCH ×2 (05:31→14:06)
[2017-10-23 06:13] LABS: BASOPHILS % (AUTO) 0 % (0-10); EOSINOPHILS # (AUTO) 0.2 10^3/uL (0.0-0.3); EOSINOPHILS % (AUTO) 2 % (0-10); HEMATOCRIT 50 % (35-52); HEMOGLOBIN 15.9 G/DL (11.5-16.0); LYMPHOCYTES # (AUTO) 1.9 X 10^3 (1.0-4.0); LYMPHOCYTES % (AUTO) 20 % (12-44); MEAN CORPUSCULAR HEMOGLOBIN 28 PG (25-34); MEAN CORPUSCULAR HGB CONC 32 G/DL (32-36); MEAN CORPUSCULAR VOLUME 86 FL (80-99); MEAN PLATELET VOLUME 11.4 FL (7.4-10.4); MONOCYTES % (AUTO) 10 % (0-12); NEUTROPHILS # (AUTO) 6.4 X 10^3 (1.8-7.8); NEUTROPHILS % (AUTO) 68 % (42-75); PLATELET COUNT 283 10^3/uL (130-400); RED BLOOD COUNT 5.76 10^6/uL (4.35-5.85); RED CELL DISTRIBUTION WIDTH 17.7 % (10.0-14.5); WHITE BLOOD COUNT 9.4 10^3/uL (4.3-11.0)
[2017-10-23 06:34] LABS: PROTHROMBIN TIME PATIENT 22.6 SEC (12.2-14.7)
[2017-10-23] MEDS ORDERED: HEParin (CATH LAB) 2,000 ML IV ONE (06:35)
[2017-10-23] MEDS ORDERED: LIDOCAINE 1% INJ 50 ML (XYLOCAINE) VIAL ONE (06:35)
[2017-10-23] MEDS ORDERED: NS IV 1000 ML 1,000 ML ONE (06:35)
[2017-10-23 06:46] LABS: BUN/CREATININE RATIO 28; CARBON DIOXIDE 31 MMOL/L (21-32); CHLORIDE 99 MMOL/L (98-107); CREATININE SERUM 0.81 MG/DL (0.60-1.30); GFR ESTIMATED > 60; GLUCOSE 78 MG/DL (70-105); POTASSIUM 4.6 MMOL/L (3.6-5.0); SODIUM 140 MMOL/L (135-145)
[2017-10-23] MEDS: ADVAIR HFA 115/21 MCG INHALER 8 GM IH SCH (06:46)
[2017-10-23] MEDS ORDERED: fentaNYL INJECTION 100 MCG/2 ML AMP ONE (07:05)
[2017-10-23] MEDS ORDERED: MIDAZOLAM 5 MG/5 ML (VERSED) VIAL ONE (07:05)
[2017-10-23] MEDS: POLYETHYLENE GLYCOL 17 GM (MIRALAX) PACK PO SCH (07:36)
[2017-10-23 08:00] VITALS: BP 171/100
[2017-10-23] MEDS ORDERED: NS IV 1000 ML 1,000 ML IV SCH ×3 (08:00→08:49)
--- NOTE | 2017-10-23 08:01 | Cardiac Procedure Note-CS/ASA ---
Pre-Procedure Note Pre-Op Procedure Note H&P Reviewed The H&P was reviewed, patient examined and no changes noted. Date H&P Reviewed: Oct 23, 2017 Time H&P Reviewed: 08:00 Conscious Sedation Pre-Proced Time Reviewed: 08:00 ASA Class: 3 Airway Mallampati Classification: ([place] appropriate class) I. II. III, IV Lungs Heart ASA score ASA 1: a normal healthy patient ASA 2: a patient with a mild systemic disease (mid diabetes, controlled hypertension, obesity x ASA 3: a patient with a severe systemic disease that limits activity (angina , COPD, prior Myocardial infarction) ASA 4: a patient with an incapacitating disease that is a constant threat to life (CHF, renal failure) ASA 5: a moribund patient not expected to survive 24 hrs. (ruptured aneurysm) ASA 6: a declared brain patient whose organs are being harvested. For emergent operations, add the letter E after the classification Grade 3 Sedation Plan: Analgesia, Amnesia, Plan communicated to team members, Discussed options with patient/fam, Discussed risks with patient/fam Note The patient is an appropriate candidate to undergo the planned procedure, sedation, and anesthesia. The patient immediately re-assessed prior to indication. ALONZO AMADOR MD Oct 23, 2017 08:01
[2017-10-23] MEDS ORDERED: FUROSEMIDE 40 MG/4 ML INJ (LASIX) IVP ONE (08:30)
--- NOTE | 2017-10-23 08:32 | Pulmonary Progress Note ---
Subjective Time Seen by Provider: 08:33 Subjective/Events-last exam no complications noted. Exam Exam Vital Signs Date Time Temp Pulse Resp B/P (MAP) Pulse Ox O2 Delivery O2 Flow Rate FiO2 10/23/17 06:45 91 Nasal Cannula 4.00 10/23/17 02:36 93 Nasal Cannula 4.00 10/23/17 00:01 97.7 95 20 139/81 (100) 95 NIV CPAP 4.00 10/22/17 21:12 92 Nasal Cannula 4.00 10/22/17 20:00 Nasal Cannula 4.00 10/22/17 18:14 92 Nasal Cannula 4.00 10/22/17 16:29 97.5 110 20 133/81 (98) 94 Nasal Cannula 4.00 10/22/17 14:29 95 Nasal Cannula 4.00 10/22/17 11:15 96 Nasal Cannula 4.00 10/22/17 08:30 98.2 103 20 121/75 (90) 93 Nasal Cannula 4.00 I & O 10/23/17 07:00 Intake Total 1482 ml Output Total 1700 ml Balance -218 ml General Appearance: No Apparent Distress, WD/WN HEENT: PERRL/EOMI, TMs Normal, Normal ENT Inspection, Pharynx Normal Neck: Full Range of Motion, Normal Inspection, Supple Respiratory: No Accessory Muscle Use, No Respiratory Distress, Decreased Breath Sounds, Other (on 4lpm) Cardiovascular: Regular Rate, Rhythm, No Murmur Capillary Refill: Less Than 3 Seconds Extremity: Normal Inspection Neurologic/Psychiatric: Alert, Oriented x3, Normal Mood/Affect Skin: Normal Color, Warm/Dry Lymphatic: No Adenopathy Results Lab Laboratory Tests 10/22/17 06:05 10/23/17 06:02 Assessment/Plan Assessment/Plan Mycoplasma PNA- resolving -SVNS CHF AE with pulmonary edema s/p cath -Cardiology following -Repeat CXR Tobacco dependance -Education COPD AE - prednisone taper -SVNs TODD -Pt uses her CPAP machine at night. Hx of aortic valve replacement. 232 Clinical Quality Measures DVT/VTE Risk/Contraindication: Risk Factor Score Per Nursin RFS Level Per Nursing on Admit: 4+=Very High THIEN KIRKPATRICK DO Oct 23, 2017 08:32
--- NOTE | 2017-10-23 08:44 | Cardiac Cath Report ---
Cardiac Cath Report Physician (s)/Press Room Supervisor (s) Physician ALONZO AMADOR MD Pre-Procedure Diagnosis Pre-Procedure Diagnosis: Coronary artery disease Post-Procedure Note Procedure Start Date: Oct 23, 2017 Name of Procedure: Left heart catheterization Aortic root angiogram Aortic arch angiogram Findings/Procedure Note PROCEDURE NOTE: After explaining the procedure to the patient, all pros and cons were explained, all questions were answered. The patient signed the consent and then she was placed on the cardiac catheterization laboratory. The patient was placed on the cardiac catheterization laboratory. Groin was prepped SL fashion local anesthesia was used. Sheath placed in the artery. I had difficulty advancing the J-wire across the aortic arch, exchange wire was used throughout the procedure Jerry right and left catheter were used to access the coronary system. Pigtail was advanced to the aortic root and aortic root angiogram was done then aortic arch angiogram was done I reintroduce Jerry right catheter to the aortic arch & measure the gradient across the coarctation of the aorta At the end of the procedure the sheath was removed. Closure device was used FINDINGS: Hemodynamics Aortic arch pressure 160/96 mean of 124 Descending aortic pressure 163/97 mean of 124 No significant gradient across the coarctation ANATOMY: Left Main is free of obstructive disease Left Anterior Descending has mild disease no significant obstructive disease Left Circumflex with no obstructive disease Right Coronory Artery is dominant with no obstructive disease Aorta evaluation was done on 2 stages aortic root and aortic arch angiogram which showed normal functioning prosthetic aortic valve with ascending aortic aneurysm and coarctation of the aorta at the descending portion with no significant gradient CONCLUSION: 1. Mild coronary artery disease with no significant obstructive disease 2. Ascending aortic aneurysm 3. Coarctation of the aorta with no significant gradient DISCUSSION AND RECOMMENDATION: Continue to maximize medical therapy, follow up as an outpatient with CT of the chest Anesthesia Type: Conscious Sedation Estimated blood loss (mL): 10 ml Contrast Amount: 93 ml Total Radiation Dose: 473 mGy Post-Procedure Diagnosis Post-operative diagnosis: Coronary artery disease Thoracic aortic aneurysm Coarctation of the aorta Aortic valve replacement Mitral valve repair (1) Mycoplasmal pneumonia Assessment & Plan: +mycoplasma per OSH Completed abx today MAT protocol Prednisone taper Pulm consulted, appreciate recs Qualifiers: Qualified Codes: J15.7 - Pneumonia due to Mycoplasma pneumoniae (2) CAD (coronary artery disease) Assessment & Plan: had lexiscan yesterday, high risk study Plan for cath tomorrow Cardiology consulted, appreciate recs Qualifiers: Qualified Codes: I25.10 - Atherosclerotic heart disease of [place] coronary artery without angina pectoris (3) CHF (congestive heart failure), NYHA class III Assessment & Plan: Cardiology consulted, appreciate recs Continue Metoprolol, Losartan Echo shows EF 40-45% Qualifiers: Qualified Codes: I50.9 - Heart failure, unspecified (4) COPD (chronic obstructive pulmonary disease) Assessment & Plan: Continue Steroid taper, Advair, Albuterol prn MAT Protocol Pulm consulted Titrate oxygen to keep sats> 89 Wears 2lpm at home- has DME there per patient but unsure of capacity if higher levels are needed Qualifiers: Qualified Codes: J44.9 - Chronic obstructive pulmonary disease, unspecified (5) Tobacco abuse Assessment & Plan: Attempting cessation Nicotine patch (6) Aortic valve replaced Assessment & Plan: as seen on echo INR 2.0, Holding coumadin for cath Cards consulted ALONZO AMADOR MD Oct 23, 2017 08:44
--- NOTE | 2017-10-23 08:49 | Cardiology Progress Note ---
Subjective Date Seen by Provider: Oct 23, 2017 Time Seen by Provider: 08:47 Subjective/Events-last exam patient is laying down in bed, had mild shortness of breath. No new complaint. Underwent cardiac catheterization Review of Systems General: No Chills, No Night Sweats, No Fatigue, No Malaise, No Appetite, No Other HEENT: No Head Aches, No Visual Changes, No Eye Pain, No Ear Pain, No Dysphasia , No Sinus Congestion, No Post Nasal Drip, No Sore Throat, No Other Pulmonary: Dyspnea, No Cough, No Pleuritic Chest Pain, No Other Cardiovascular: No: Chest Pain, Palpitations, Orthopnea, Paroxysmal Noc. Dyspnea, Edema, Lt Headedness, Other Objective-Cardiology Exam Last Set of Vital Signs Vital Signs 10/23/17 10/23/17 00:01 06:45 Temp 97.7 Pulse 95 Resp 20 B/P (MAP) 139/81 (100) Pulse Ox 91 O2 Delivery Nasal Cannula O2 Flow Rate 4.00 Capillary Refill : Less Than 3 SecondsLess Than 3 Seconds I&O Intake and Output 10/23/17 00:00 Intake Total 1582 ml Output Total 1450 ml Balance 132 ml Intake Oral 1582 ml Output Urine Total 1450 ml # Voids 2 # Bowel Movements 4 General: Alert, Oriented X3, Cooperative HEENT: Atraumatic, PERRLA Neck: Supple, No JVD, No Thyromegaly Lungs: Clear to Auscultation, Normal Air Movement Heart: Regular Rate, Normal S1, Normal S2, No Murmurs Abdomen: Normal Bowel Sounds, Soft, No Tenderness, No Hepatosplenomegaly, No Masses Extremities: No Clubbing, No Cyanosis, Normal Pulses, No Tenderness/Swelling Skin: No Rashes, No Breakdown, No Significant Lesion Neuro: Normal Gait, Normal Speech, Strength at 5/5 X4 Ext, Normal Tone, Sensation Intact Psych/Mental Status: Mental Status NL, Mood NL Results Lab Laboratory Tests 10/23/17 06:02 A/P-Cardiology Admission Diagnosis Acute respiratory failure Pneumonia Congestive heart failure Valvular heart disease Assessment/Plan Status post acute respiratory failure, acute exacerbation of COPD, improving, feeling better, continue on current treatment and monitor. Pneumonia, atypical, on Rocephin and Zithromax, proving, continue current treatment Coronary artery disease, cardiac catheterization done showing mild coronary artery disease nonobstructive disease Ascending thoracic aortic aneurysm and coarctation of the aorta noted incidentally during cardiac catheterization, no significant gradient across the coarctation, continue with medical therapy. Cyanosis and hypoxemia, secondary to above, continue with supportive care, slightly better. Congestive heart failure, Acute on chronic left ventricular systolic dysfunction , secondary to valvular heart disease, History of aortic valve replacement and mitral valve ring repair, ejection fraction 40 percent. planning to evaluate Lexiscan stress test History of aortic valve replacement and mitral valve ring repair, echocardiogram showed prosthetic valve is functioning normally, INR is 2.0, continue Coumadin and monitor INR Hypertension, blood pressure is better at this time. Continue to monitor Hyperlipidemia, monitor lipids Noncompliance with medication, monitor INR closely. BMI 32, we discussed weight loss, increased risk for diabetes. Clinical Quality Measures DVT/VTE Risk/Contraindication: Risk Factor Score Per Nursin RFS Level Per Nursing on Admit: 4+=Very High ALONZO AMADOR MD Oct 23, 2017 08:49
[2017-10-23] MEDS ORDERED: PATIENT MAY USE OWN MEDS, ALL PO SCH (09:00)
[2017-10-23] MEDS: LOSARTAN 25 MG (COZAAR) TAB PO SCH (10:32)
[2017-10-23] MEDS: predniSONE 10 MG TAB PO SCH (10:32)
[2017-10-23] MEDS: ALPRAZolam 0.5 MG (XANAX) TAB PO SCH (10:33)
[2017-10-23] MEDS: NICOTINE PATCH REMOVAL TP SCH (10:33)
[2017-10-23] MEDS: NICOTINE 7 MG (NICODERM) PATCH TD SCH (10:33)
[2017-10-23] MEDS: meTOprolol TARTRATE 25 MG (LOPRESSOR) TABLET PO SCH (10:33)
[2017-10-23] MEDS ORDERED: PRED10TA22 PO (11:04)
[2017-10-23] MEDS ORDERED: LOSA25TA21 PO (11:04)
--- NOTE | 2017-10-23 11:26 | D/C HH Face to Face Order ---
D/C Face to Face Orders Instructions for Patient Patient Instructions/FollowUp: Please follow up with Dr Andino in [address] Holder in 2 weeks. Physician to follow Patient: Dr Andino Discharge Diet for Home: Cardiac Diet Patient Data-Allergies,Ht & Wt Patient Allergies: Coded Allergies: No Known Drug Allergies (Unverified , 10/16/17) Height (Feet): 6 Height (Inches): 0.00 Weight (Pounds): 239 Weight (Ounces): 5.0 Home Health Need/Face to Face Date of Face to Face: Oct 23, 2017 Clinical Findings: Shortness of breath I have seen Pt [id number]: Yes Discharged To: Home Diagnosis/Conditions: COPD, CHF, PNA Problems/Diagnosis/Condition: Patient is Homebound due to: Shortness of breath/distress High oxygen requirement Homebound Status Due to the above stated illness, injury or surgical procedure (medical condition or diagnosis) and associated clinical findings, the patient is homebound because of his/her inability to leave home except with aid of a supportive device and/or person AND leaving the home requires a considerable and taxing effort or is medically contraindicated. Pt req the following assistanc: Aid of another person Home Health Nursing Orders Home Health Services Order: Nursing Services Home Health Infusion Therapy Line Start Date: Oct 16, 2017 Line Type: [facility] Site Location: [facility] Certify Stmt I certify that this patient is under my care and that I, a nurse practitioner or a physician; a medical receptionist assistant working with me, had a face to face encounter that - meets the physician face to face encounter requirements with this patient as dated. ENRRIQUE RAWLS MD Oct 23, 2017 11:26
--- NOTE | 2017-10-23 11:54 | Discharge Summary-Hospitalist ---
Diagnosis/Chief Complaint Date of Admission Oct 16, 2017 at 10:05 am Date of Discharge Discharge Date: Oct 23, 2017 Admission Diagnosis Assessment: Acute on chronic respiratory failure Mycoplasma pneumonia Congestive heart failure with elevated BNP echo ordered History of heart valve replacement maintain on Coumadin History of UTIs COPD Current smoker Discharge Diagnosis CAP (1) Mycoplasmal pneumonia Status: Acute Assessment & Plan: +mycoplasma per OSH Completed abx 10/22 MAT protocol Prednisone taper Pulm consulted, appreciate recs (2) CAD (coronary artery disease) Status: Chronic Assessment & Plan: had lexiscan 10/21, high risk study Cath 10/23- no intervention needed but thoracic aortic aneurysm noted and coarctation Cardiology consulted, appreciate recs (3) CHF (congestive heart failure), NYHA class III Status: Acute Assessment & Plan: Cardiology consulted, appreciate recs Continue Metoprolol, Losartan Echo shows EF 40-45% (4) COPD (chronic obstructive pulmonary disease) Status: Chronic Assessment & Plan: Continue Steroid taper, Advair, Albuterol prn MAT Protocol Pulm consulted Titrate oxygen to keep sats> 89 Wears 2lpm at home- has DME there per patient but unsure of capacity if higher levels are needed Social work consulted, appreciate assistance with arranging oxygen (5) Tobacco abuse Status: Chronic Assessment & Plan: Attempting cessation Nicotine patch (6) Aortic valve replaced Assessment & Plan: as seen on echo Resume Coumadin Cards consulted Discharge Summary Consultations Dr Lucero- Cardiology Dr Holder- Silvio Discharge Physical Examination Allergies: Coded Allergies: No Known Drug Allergies (Unverified , 10/16/17) Vitals & I&Os Vital Signs Date Time Temp Pulse Resp B/P (MAP) Pulse Ox O2 Delivery O2 Flow Rate FiO2 10/23/17 11:23 93 Nasal Cannula 4.00 10/23/17 09:26 101 10/23/17 08:00 97.8 22 171/100 (123) Hospital Course Pt is a 56yoCF who transferred [place] [facility] for acute respiratory failure due to pneumonia. She was treated with antibiotics and completed treatment on 10/22. She had been somewhat noncompliant given her respiratory and cardiac issues as an outpatient. Cardiology and pulmonology were consulted. She underwent cardiac cath on 10/23 which required no intervention. She was discharged home with home oxygen and home health to assist with DME setup and meds. She is to follow up with Dr. Andino, Dr. Lucero, and, Dr. Holder following this hospitalization. Labs (last 24 hrs) Laboratory Tests 10/23/17 06:02: White Blood Count 9.4, Red Blood Count 5.76, Hemoglobin 15.9, Hematocrit 50, Mean Corpuscular Volume 86, Mean Corpuscular Hemoglobin 28, Mean Corpuscular Hemoglobin Concent 32, Red Cell Distribution Width 17.7H, Platelet Count 283, Mean Platelet Volume 11.4H, Neutrophils (%) (Auto) 68, Lymphocytes (%) (Auto) 20 , Monocytes (%) (Auto) 10, Eosinophils (%) (Auto) 2, Basophils (%) (Auto) 0, Neutrophils # (Auto) 6.4, Lymphocytes # (Auto) 1.9, Monocytes # (Auto) 1.0, Eosinophils # (Auto) 0.2, Basophils # (Auto) 0.0, Prothrombin Time 22.6H, INR Comment 2.0H, Sodium Level 140, Potassium Level 4.6, Chloride Level 99, Carbon Dioxide Level 31, Anion Gap 10, Blood Urea Nitrogen 23H, Creatinine 0.81, Estimat Glomerular Filtration Rate > 60, BUN/Creatinine Ratio 28, Glucose Level 78, Calcium Level 9.0 Pending Labs Laboratory Tests 10/23/17 06:02: White Blood Count 9.4, Red Blood Count 5.76, Hemoglobin 15.9, Hematocrit 50, Mean Corpuscular Volume 86, Mean Corpuscular Hemoglobin 28, Mean Corpuscular Hemoglobin Concent 32, Red Cell Distribution Width 17.7, Platelet Count 283, Mean Platelet Volume 11.4, Neutrophils (%) (Auto) 68, Lymphocytes (%) (Auto) 20 , Monocytes (%) (Auto) 10, Eosinophils (%) (Auto) 2, Basophils (%) (Auto) 0, Neutrophils # (Auto) 6.4, Lymphocytes # (Auto) 1.9, Monocytes # (Auto) 1.0, Eosinophils # (Auto) 0.2, Basophils # (Auto) 0.0, Prothrombin Time 22.6, INR Comment 2.0, Sodium Level 140, Potassium Level 4.6, Chloride Level 99, Carbon Dioxide Level 31, Anion Gap 10, Blood Urea Nitrogen 23, Creatinine 0.81, Estimat Glomerular Filtration Rate > 60, BUN/Creatinine Ratio 28, Glucose Level 78, Calcium Level 9.0 Discharge Home Medications: Active Scripts Active Prednisone 10 Mg Tab.ds.pk 10 Mg PO DAILY Take 4 tabs(40mg)daily,decrease by 1 tab(10mg)every other day. Losartan Potassium 25 Mg Tablet 25 Mg PO DAILY Reported Albuterol Sulfate 2.5 Mg/3 Ml Vial.neb 2.5 Mg NEB QID PRN Metoprolol Tartrate 25 Mg Tablet 25 Mg PO BID Breo Ellipta 100-25 Mcg INH (Fluticasone/Vilanterol) 1 Each Blst.w.dev 1 Puff IH DAILY Xanax (Alprazolam) 0.5 Mg Tablet 0.5 Mg PO BID Warfarin Sodium 4 Mg Tablet 4 Mg PO Q48H Warfarin Sodium 2 Mg Tablet 2 Mg PO Q48H Instructions to patient/family Please see electronic discharge instructions given to patient. Clinical Quality Measures AMI/AHF: Ejection Fraction: Above/Equal to 40 D/C Medications Addressed: Angiotension receptor freda, Beta freda DVT/VTE Risk/Contraindication: Risk Factor Score Per Nursin RFS Level Per Nursing on Admit: 4+=Very High Copy Copies To 1: THIEN HOLDER DO; ALONZO LUCERO MD; RAFAELA ANDINO MD Problem Qualifiers (1) Mycoplasmal pneumonia: Laterality: left Lung location: lower lobe of lung Qualified Codes: J15.7 - Pneumonia due to Mycoplasma pneumoniae (2) CAD (coronary artery disease): Coronary Disease-Associated Artery/Lesion type: [place] artery [place] vs. transplanted heart: [place] heart Associated angina: without angina Qualified Codes: I25.10 - Atherosclerotic heart disease of [place] coronary artery without angina pectoris (3) CHF (congestive heart failure), NYHA class III: Congestive heart failure type: unspecified congestive heart failure type Qualified Codes: I50.9 - Heart failure, unspecified (4) COPD (chronic obstructive pulmonary disease): COPD type: unspecified COPD Qualified Codes: J44.9 - Chronic obstructive pulmonary disease, unspecified ENRRIQUE RAWLS MD Oct 23, 2017 11:54 am
[2017-10-23 17:00] VITALS: BP 171/100
== END 2017-10-23 17:30 | disposition home health service (06) | DRG 189 ==
LOC: ICU 10:05 → EDBD 10:05 → ICU 10-18 02:06 → 4TH 10-18 09:50
PROVIDERS: ADMIT Internal Medicine; ATTEND Internal Medicine
PROC: 4A023N7 Measurement of Cardiac Sampling and Pressure, Left Heart, Percutaneous Approach (ICD-10-PCS; principal; 2017-10-23)
PROC: B2151ZZ Fluoroscopy of Left Heart using Low Osmolar Contrast (ICD-10-PCS; 2017-10-23)
PROC: B2111ZZ Fluoroscopy of Multiple Coronary Arteries using Low Osmolar Contrast (ICD-10-PCS; 2017-10-23)
PROC: B3101ZZ Fluoroscopy of Thoracic Aorta using Low Osmolar Contrast (ICD-10-PCS; 2017-10-23)
DX: J96.20 Acute and chronic respiratory failure, unspecified whether with hypoxia or hypercapnia (principal); I11.0 Hypertensive heart disease with heart failure; I50.23 Acute on chronic systolic (congestive) heart failure; J15.7 Pneumonia due to Mycoplasma pneumoniae; J44.0 Chronic obstructive pulmonary disease with (acute) lower respiratory infection; J44.1 Chronic obstructive pulmonary disease with (acute) exacerbation; I42.9 Cardiomyopathy, unspecified; F17.210 Nicotine dependence, cigarettes, uncomplicated; G47.30 Sleep apnea, unspecified; I25.10 Atherosclerotic heart disease of native coronary artery without angina pectoris; E78.5 Hyperlipidemia, unspecified; F41.9 Anxiety disorder, unspecified; R00.0 Tachycardia, unspecified; E83.42 Hypomagnesemia; I71.2 Thoracic aortic aneurysm, without rupture; E66.9 Obesity, unspecified; Z68.33 Body mass index [BMI] 33.0-33.9, adult; Z95.1 Presence of aortocoronary bypass graft; Z95.2 Presence of prosthetic heart valve; Z79.01 Long term (current) use of anticoagulants; Z91.14 Patient's other noncompliance with medication regimen
CPT/HCPCS: 36221; 36415; 71045; 71046; 78452; 80048; 80053; 82805; 83735; 83880; 84100; 85025; 85027; 85610; 93005; 93017; 93306; 93454; 93567; 94640; 94760; 94761

== ENCOUNTER → 2017-11-09 | Outpatient (CLI) | payer MEDICAID ==
[~2017-11-09] MED LIST: ALBU2.5V4 NEB; ALPR0.5T PO; FLUT1AER IH; LOSA25TA21 PO; METO-333 PO; PRED10TA22 PO; WARF-47 PO; WARF4TAB70 PO
--- NOTE | 2017-11-09 12:55 | Diagnostic Imaging Report ---
INDICATION: COPD. Comparison made with prior examination from 10/22/17. FINDINGS: There is cardiomegaly. There has been previous median sternotomy and coronary bypass graft. There are bibasal infiltrates. There is no pneumothorax. Mediastinum is unremarkable. There is no pleural effusion. IMPRESSION: Cardiomegaly and persistent bibasal pulmonary infiltrates. Dictated by: Dictated on workstation # [id number]
== END ==
LOC: RAD 12:31
PROVIDERS: ATTEND Nurse Practitioner Family
DX: I51.7 Cardiomegaly (principal); R91.8 Other nonspecific abnormal finding of lung field; J44.9 Chronic obstructive pulmonary disease, unspecified; R09.02 Hypoxemia; F17.200 Nicotine dependence, unspecified, uncomplicated
CPT/HCPCS: 71046

== ENCOUNTER → 2017-11-23 | Outpatient (CLI) | payer MEDICAID ==
[~2017-11-23] MED LIST changes: +RT-ALBUTEROL SULF 2.5 MG/3 ML PRE-MIX VIAL INH ONE
== END ==
LOC: RT 09:16
PROVIDERS: ATTEND Nurse Practitioner Family
DX: J44.9 Chronic obstructive pulmonary disease, unspecified (principal); F17.200 Nicotine dependence, unspecified, uncomplicated; R09.02 Hypoxemia; G47.30 Sleep apnea, unspecified
CPT/HCPCS: 94060; 94726; 94729